=== PATIENT | female | born 1970 | race Hispanic/Latino ===

== ENCOUNTER → 2019-03-07 | Outpatient (CLI) | payer MEDICARE ==
[~2019-03-07] MED LIST: CITA-107 PO; INSU100I3 SQ; LISI-613 PO
== END | disposition home or self-care (01) ==
LOC: OIH 10:14
PROVIDERS: ATTEND Internal Medicine
DX: M17.0 Bilateral primary osteoarthritis of knee (principal)
CPT/HCPCS: 73560

== ENCOUNTER 2019-03-08 01:11 | Emergency (ER) | payer MEDICARE ==
[2019-03-08] MEDS ORDERED: IBUPROFEN 200 MG TAB ONE (01:51)
[2019-03-08] MEDS ORDERED: IBUPROFEN 400 MG TABLET ONE (01:51)
[2019-03-08 02:06] LABS: BASOPHILS % (AUTO) 1.2 % (0.0-5.0); EOSINOPHILS % (AUTO) 2.4 % (0.0-8.0); HEMATOCRIT 30.7 % (36-48); LYMPHOCYTES % (AUTO) 24.3 % (21.0-51.0); MEAN CORPUSCULAR HEMOGLOBIN 30.4 pg (27.0-33.0); MEAN CORPUSCULAR HGB CONC 33.8 g/dL (32.0-36.0); MEAN CORPUSCULAR VOLUME 90.1 fL (79-99); MONOCYTES % (AUTO) 5.8 % (3.0-13.0); NEUTROPHILS % (AUTO) 66.3 % (40.0-77.0); PLATELET COUNT (AUTO) 258 K/uL (130-400); RED BLOOD CELL COUNT(AUTO) 3.41 MIL/uL (4.00-5.50); RED CELL DISTRIBUTION WIDTH 17.4 % (11.0-15.5); WHITE BLOOD COUNT (AUTO) 10.6 K/uL (4.8-10.8)
[2019-03-08 02:18] LABS: CREATININE 7.5 mg/dL (0.5-1.5); POTASSIUM 4.9 mmol/L (3.5-5.1)
[2019-03-08 02:21] LABS: BILIRUBIN,TOTAL 0.4 mg/dL (0.2-1.0)
== END 2019-03-08 03:58 | disposition home or self-care (01) ==
LOC: EDH 01:11
DX: I12.0 Hypertensive chronic kidney disease with stage 5 chronic kidney disease or end stage renal disease (principal); E11.22 Type 2 diabetes mellitus with diabetic chronic kidney disease; N18.6 End stage renal disease; N92.6 Irregular menstruation, unspecified; Z99.2 Dependence on renal dialysis; Z88.0 Allergy status to penicillin; Z79.4 Long term (current) use of insulin
CPT/HCPCS: 36415; 74021; 76830; 80053; 84702; 85025

== ENCOUNTER → 2019-04-02 | Outpatient (CLI) | payer MEDICARE | END | disposition home or self-care (01) | LOC: OIH 11:10 | PROVIDERS: ATTEND Internal Medicine | DX: Z01.818 Encounter for other preprocedural examination (principal) | CPT/HCPCS: 71046 ==

== ENCOUNTER 2019-04-06 21:34 | Observation (INO) | payer MEDICARE ==
[~2019-04-06] VITALS: Ht 152.4 cm; Wt 82.1 kg
[2019-04-06] MEDS ORDERED: NITROGLYCERIN 1GM/1 INCH PACKET TD ONE (21:59)
[2019-04-06 22:22] LABS: BASOPHILS % (AUTO) 1.3 % (0.0-5.0); EOSINOPHILS % (AUTO) 2.4 % (0.0-8.0); HEMATOCRIT 27.3 % (36-48); LYMPHOCYTES % (AUTO) 26.9 % (21.0-51.0); MEAN CORPUSCULAR HEMOGLOBIN 29.8 pg (27.0-33.0); MEAN CORPUSCULAR HGB CONC 32.6 g/dL (32.0-36.0); MEAN CORPUSCULAR VOLUME 91.5 fL (79-99); MONOCYTES % (AUTO) 8.2 % (3.0-13.0); NEUTROPHILS % (AUTO) 61.2 % (40.0-77.0); PLATELET COUNT (AUTO) 508 K/uL (130-400); RED BLOOD CELL COUNT(AUTO) 2.99 MIL/uL (4.00-5.50); RED CELL DISTRIBUTION WIDTH 17.3 % (11.0-15.5)
[2019-04-06 22:31] LABS: CREATININE 6.1 mg/dL (0.5-1.5); POTASSIUM 4.9 mmol/L (3.5-5.1)
[2019-04-06 22:35] LABS: INR 0.93 (0.85-1.15); PARTIAL THROMBOPLASTIN TIME 28.5 SEC (26.3-35.5); PROTHROMBIN TIME 9.8 SEC (9.6-11.6)
[2019-04-06 22:40] LABS: ALBUMIN 3.1 g/dL (3.5-5.0); BILIRUBIN,TOTAL 0.3 mg/dL (0.2-1.0); TOTAL PROTEIN, SERUM 7.7 g/dL (6.0-8.3)
[2019-04-06] MEDS ORDERED: METOPROLOL TARTRATE 1 MG/ML 5ML VIAL IV ONE (22:52)
[2019-04-06] MEDS ORDERED: ASPIRIN 325MG EC TAB 325 MG TABLET.DR PO ONE (22:53)
[2019-04-07] VITALS (7 sets, daily range): BP systolic 133–186; BP diastolic 69–86
--- NOTE | 2019-04-07 03:30 | NUR ---
ADMISSION. PT TRANSFERRED FORM ER INTO ROOM 404 VIA STRETCHER. PT AWAKE, ALERT AND RESPONSIVE, NO C/O CHEST PAIN OR DISCOMFORT AT THIS TIME. PT ORIENTED TO ROOM, CALL ROMAN WITHIN REACH, BED IN LOWEST POSITION.
[2019-04-07] MEDS ORDERED: AMLO5TAB9 PO (03:51)
[2019-04-07] MEDS ORDERED: LOSA100T58 PO (03:51)
[2019-04-07] MEDS ORDERED: METO-409 PO (03:51)
[2019-04-07] MEDS ORDERED: ESOM20CA60 PO (03:51)
[2019-04-07] MEDS ORDERED: ZOLP5TAB2 PO (03:52)
[2019-04-07] MEDS ORDERED: INSU10VI3 SQ ×2 (04:17)
[2019-04-07 05:07] LABS: CREATINE KINASE, TOTAL 30 U/L (21-232); MYOGLOBIN 107 ng/mL (10-92); TROPONIN I < 0.04 ng/mL (0.00-0.06)
[2019-04-07] MEDS: INSULIN HUMULIN R 100 UNIT/ML 3ML SQ SCH ×4 (05:40→20:46)
[2019-04-07] MEDS: METOPROLOL TARTRATE 50 MG TAB PO SCH ×2 (09:36→20:45)
[2019-04-07] MEDS: PANTOPRAZOLE SODIUM 40 MG TABLET.DR PO SCH (09:37)
[2019-04-07] MEDS: INSULIN HUMULIN 70/30 100 UNIT/ML 3ML SQ SCH ×2 (09:37→17:00)
[2019-04-07] MEDS: CITALOPRAM 20 MG TABLET PO SCH (09:37)
[2019-04-07 10:47] LABS: CREATINE KINASE, TOTAL 39 U/L (21-232); MYOGLOBIN 124 ng/mL (10-92); TROPONIN I < 0.04 ng/mL (0.00-0.06)
--- NOTE | 2019-04-07 13:00 | NUR ---
MD ALEX HIDALGO VISITED WITH PATIENT. POC DISCUSSED. NEW ORDERS RECEIVED AND CARRIED OUT. PATIENT AWARE. NO QUESTIONS OR CONCERNS VOICED AT THIS TIME. PATIENT AWARE OF PENDING DIALYSIS AFTER [place]. WILL CONTINUE TO BE OBSERVED. CALL LIGHT WITHIN REACH. Addendum: 04/07/19 at 1802 by BAUDILIO LY RN RN Amended: Links added.
[2019-04-07] MEDS ORDERED: SODIUM POLYSTYRENE SULFONATE 15 GM/60 ML ML PO SCH (13:15)
[2019-04-07 16:34] LABS: CREATINE KINASE, TOTAL 27 U/L (21-232); MYOGLOBIN 114 ng/mL (10-92); TROPONIN I < 0.04 ng/mL (0.00-0.06)
--- NOTE | 2019-04-07 18:33 | NUR ---
cm note met with patient and states resides athome with spouse and extended family. pt has a walker and a cane, but rarely uses. pt attends [facility], and family assists with transport.no provider no services at home. dcplan is back to same. provided pt with requested info on provider assist through [facility] agency on aging and possible assist with transport to dialysis. no other dc needs. Addendum: 04/07/19 at 1835 by NIRALI VERDE CM Amended: Links added.
[2019-04-07] MEDS: LOSARTAN 100 MG TABLET PO SCH (20:45)
[2019-04-07] MEDS: ZOLPIDEM TARTRATE 5 MG TAB PO SCH (20:45)
[2019-04-07] MEDS: AMLODIPINE BESYLATE 5 MG TAB PO SCH (20:45)
[2019-04-08 04:00] VITALS: BP 159/79
[2019-04-08 05:16] LABS: HEMATOCRIT 23.9 % (36-48); MEAN CORPUSCULAR HEMOGLOBIN 29.3 pg (27.0-33.0); MEAN CORPUSCULAR HGB CONC 31.9 g/dL (32.0-36.0); MEAN CORPUSCULAR VOLUME 91.8 fL (79-99); PLATELET COUNT (AUTO) 387 K/uL (130-400); RED CELL DISTRIBUTION WIDTH 18.1 % (11.0-15.5); WHITE BLOOD COUNT (AUTO) 10.1 K/uL (4.8-10.8)
[2019-04-08] MEDS: INSULIN HUMULIN R 100 UNIT/ML 3ML SQ SCH ×4 (05:22→20:16)
[2019-04-08 05:29] LABS: PHOSPHORUS 3.3 mg/dL (2.5-4.9)
[2019-04-08 05:35] LABS: % IRON SATURATION 16.4 % (22-44); CREATININE 8.8 mg/dL (0.5-1.5)
--- NOTE | 2019-04-08 06:30 | NUR ---
ROUNDLUIS TELLO ROUNDLUIS IN PT ROOM AT THIS TIME. PT UPDATED ON POC, QUESTIONS AND CONCERNS WERE ADDRESSED BY . CRITICAL LAB VALUES ADDRESSED WITH . NO NEW ORDERS RECEIVED AT THIS TIME. Addendum: 04/08/19 at 0726 by TOBIAS KEEN RN Amended: Links added.
[2019-04-08] MEDS: INSULIN HUMULIN 70/30 100 UNIT/ML 3ML SQ SCH ×2 (08:00→17:00)
[2019-04-08] MEDS: CITALOPRAM 20 MG TABLET PO SCH (08:07)
[2019-04-08 08:16] VITALS: BP 179/83
[2019-04-08] MEDS: PANTOPRAZOLE SODIUM 40 MG TABLET.DR PO SCH (08:17)
[2019-04-08] MEDS: METOPROLOL TARTRATE 50 MG TAB PO SCH ×2 (08:18→20:03)
[2019-04-08] MEDS ORDERED: REGADENOSON 0.4 MG/5 ML PF SYG IVP SCH (11:00)
[2019-04-08 13:23] VITALS: BP 164/75
[2019-04-08] MEDS ORDERED: ONDANSETRON HCL 4 MG/2 ML VIAL IVP PRN (16:15)
[2019-04-08 16:57] VITALS: BP 180/92
--- NOTE | 2019-04-08 17:52 | NUR ---
Nutrition Intervention: Nutrition consult due to poor appetite, dialysis patient. Pt. admitted with Dx of Chest Pain, HTN, ESRD. Pt. reports has been on HD tx for about 4 years. Pt. on Renal Dialysis diet with poor p.o. intake today poss. due to stress test performed earlier, as per pt. Pt. report ate well yesterday. Labs reviewed(Alb 3.1, K 6.0, BUN 59, Creat 8.8, GFR 5, BG 158). LBM: 04/08/19. SR-22, elastic. BMI: 36.8, Obesity Grade 2. Pt. educated on Renal Dialysis diet and provided with education material. Pt. verbalized understanding. Recommendations: 1) Rec. 60gm CCD Renal Dialysis diet. 2) Rec. 30ml ProMod QD with B'fast meal. 3) Renal Dialysis diet education given to patient. 4) Continue to monitor pt's nutritional status. 5) Consult RD as nutrition concerns arise. Addendum: 04/08/19 at [address] Amended: Links added.
[2019-04-08 19:00] VITALS: BP 141/68
[2019-04-08] MEDS: LOSARTAN 100 MG TABLET PO SCH (20:03)
[2019-04-08] MEDS: ZOLPIDEM TARTRATE 5 MG TAB PO SCH (20:03)
[2019-04-08] MEDS: AMLODIPINE BESYLATE 5 MG TAB PO SCH (20:03)
[2019-04-09] VITALS: BP 121/55
[2019-04-09 03:59] VITALS: BP 154/71
[2019-04-09] MEDS: INSULIN HUMULIN R 100 UNIT/ML 3ML SQ SCH (05:30)
[2019-04-09 07:47] VITALS: BP 185/83
[2019-04-09] MEDS: PANTOPRAZOLE SODIUM 40 MG TABLET.DR PO SCH (08:57)
[2019-04-09] MEDS: CITALOPRAM 20 MG TABLET PO SCH (08:57)
[2019-04-09] MEDS: METOPROLOL TARTRATE 50 MG TAB PO SCH (08:57)
[2019-04-09] MEDS: INSULIN HUMULIN 70/30 100 UNIT/ML 3ML SQ SCH (09:00)
--- NOTE | 2019-04-09 11:39 | NUR ---
DC INSTRUCTIONS GIVEN TO PATIENT USING TEACH BACK, VERBALIZES UNDERSTANDING, IV CATHETER DISCONTINUED INTACT, NO BLEEDING NOTED, PATIENT DISCHARGED HOME TO THE CARE OF FAMILY, TRANSPORTED VIA WC.
[2019-04-10 07:21] LABS: HEPATITIS A ANTIBODY IGM Negative (Negative); HEPATITIS B CORE IGM Negative (Negative); HEPATITIS Bs ANTIGEN SCREEN P Negative (Negative)
== END 2019-04-09 11:50 | disposition home or self-care (01) ==
LOC: EDH 21:34 → EDHIP 23:14 → 4AH 04-07 02:33
PROVIDERS: ADMIT Internal Medicine; ATTEND Internal Medicine
DX: I24.9 Acute ischemic heart disease, unspecified (principal); D64.9 Anemia, unspecified; E11.22 Type 2 diabetes mellitus with diabetic chronic kidney disease; E78.5 Hyperlipidemia, unspecified; I12.0 Hypertensive chronic kidney disease with stage 5 chronic kidney disease or end stage renal disease; E87.5 Hyperkalemia; I25.119 Atherosclerotic heart disease of native coronary artery with unspecified angina pectoris; N18.6 End stage renal disease; Z82.49 Family history of ischemic heart disease and other diseases of the circulatory system; Z83.3 Family history of diabetes mellitus; Z99.2 Dependence on renal dialysis; Z79.899 Other long term (current) drug therapy
CPT/HCPCS: 36415 ×3; 71045; 78452; 80048; 80053; 80074; 82550 ×4; 82948 ×9; 83540; 83550; 83874 ×3; 84100; 84484 ×4; 84702; 85025; 85027; 85610; 85730; 93005; 93017; 96372 ×2; 99291; A9500 ×2; G0257; G0378 ×58; J1815 ×2; J2785; J3490; 90935; 96374

== ENCOUNTER → 2019-07-18 | Outpatient (CLI) | payer MEDICARE ==
[~2019-07-18] MED LIST changes: +AMLO5TAB9 PO; +ESOM20CA60 PO; -INSU100I3 SQ; +INSU10VI3 SQ; -LISI-613 PO; +LOSA100T58 PO; +METO-409 PO; +ZOLP5TAB2 PO
== END | disposition home or self-care (01) ==
LOC: OIH 15:30
PROVIDERS: ATTEND Internal Medicine
DX: M47.26 Other spondylosis with radiculopathy, lumbar region (principal); M25.78 Osteophyte, vertebrae; M48.07 Spinal stenosis, lumbosacral region
CPT/HCPCS: 72100

== ENCOUNTER 2020-05-27 17:52 | Inpatient (IN) | payer MEDICARE ==
[~2020-05-27 17:52] MED LIST changes: +AMLO-257 PO; -AMLO5TAB9 PO
[2020-05-27 18:49] LABS: BASOPHILS % (AUTO) 0.4 % (0.0-5.0); EOSINOPHILS % (AUTO) 0.3 % (0.0-8.0); HEMATOCRIT 29.5 % (36-48); LYMPHOCYTES % (AUTO) 18.2 % (21.0-51.0); MEAN CORPUSCULAR HEMOGLOBIN 29.9 pg (27.0-33.0); MEAN CORPUSCULAR HGB CONC 31.9 g/dL (32.0-36.0); MEAN CORPUSCULAR VOLUME 93.9 fL (79-99); NEUTROPHILS % (AUTO) 71.8 % (40.0-77.0); PLATELET COUNT (AUTO) 281 K/uL (130-400); RED BLOOD CELL COUNT(AUTO) 3.14 MIL/uL (4.00-5.50); RED CELL DISTRIBUTION WIDTH 16.8 % (11.0-15.5); WHITE BLOOD COUNT (AUTO) 7.3 K/uL (4.8-10.8)
[2020-05-27 19:02] LABS: INR 0.9 (0.85-1.15); PARTIAL THROMBOPLASTIN TIME 31.2 SEC (26.3-35.5); PROTHROMBIN TIME 9.8 SEC (9.6-11.6)
[2020-05-27 19:13] LABS: ALBUMIN 2.9 g/dL (3.5-5.0); BILIRUBIN,TOTAL 0.3 mg/dL (0.2-1.0); CRP QUANTITATIVE 155.1 mg/L (0.00-9.0); POTASSIUM 4.6 mmol/L (3.5-5.1); TOTAL PROTEIN, SERUM 7.5 g/dL (6.0-8.3)
[2020-05-27 19:19] LABS: CREATININE 12.3 mg/dL (0.5-1.5)
[2020-05-27 20:56] LABS: FERRITIN 2731 ng/mL (15-150)
[2020-05-27] MEDS ORDERED: DOXYCYCLINE HYCLATE 100 MG TABLET PO ONE (22:09)
[2020-05-27] MEDS ORDERED: METRONIDAZOLE 500 MG TABLET ONE (22:09)
[2020-05-27] MEDS ORDERED: DOXYCYCLINE 100MG+NS 250ML IV SCH (22:45)
[2020-05-27] MEDS ORDERED: LACTULOSE 20 GM/30 ML UDCUP PO PRN (22:45)
[2020-05-27] MEDS ORDERED: ONDANSETRON HCL 4 MG/2 ML VIAL IV PRN (22:45)
[2020-05-27] MEDS ORDERED: ERGOCALCIFEROL (VITAMIN D2) 50,000 UNIT CAPSULE PO ONE (22:45)
[2020-05-27] MEDS ORDERED: ACETAMINOPHEN 325 MG TAB PO PRN ×2 (22:45)
[2020-05-27] MEDS ORDERED: ALBUTEROL INHALER 90MCG/INH IH PRN (23:00)
[2020-05-27] MEDS ORDERED: ACETAMINOPHEN EXTRA STRENGTH 500 MG TABLET ONE (23:18)
[2020-05-27] MEDS ORDERED: ONDANSETRON HCL 4 MG/2 ML VIAL ONE (23:18)
[2020-05-27] MEDS ORDERED: HEPARIN SODIUM 5000UNIT/ML 1ML VIAL SQ SCH (23:45)
[2020-05-28] MEDS ORDERED: METHYLPREDNISOLONE SOD SUCC 40MG/ML 1ML IVP SCH
[2020-05-28] MEDS ORDERED: HYDRALAZINE HCL 20 MG/ML VIAL IV PRN
[2020-05-28] MEDS ORDERED: HEPARIN SODIUM 5000UNIT/ML 1ML VIAL ONE (00:03)
[2020-05-28] MEDS ORDERED: METHYLPREDNISOLONE SOD SUCC 40MG/ML 1ML ONE (00:03)
[2020-05-28 06:59] LABS: CRP QUANTITATIVE 215.9 mg/L (0.00-9.0)
[2020-05-28] MEDS ORDERED: INSULIN HUMULIN R 100 UNIT/ML 3ML ONE ×2 (07:06→12:11)
[2020-05-28] MEDS ORDERED: INSULIN HUMULIN R 100 UNIT/ML 3ML SQ SCH (07:30)
[2020-05-28] MEDS ORDERED: DOXYCYCLINE HYCLATE 100 MG TABLET PO ONE (08:32)
[2020-05-28] MEDS ORDERED: ZINC SULFATE 220 CAPSULE ONE (08:33)
[2020-05-28] MEDS ORDERED: ASCORBIC ACID 500 MG TAB ONE (08:33)
[2020-05-28] MEDS ORDERED: ONDANSETRON HCL 4 MG/2 ML VIAL ONE (08:35)
[2020-05-28] MEDS ORDERED: FAMOTIDINE 20MG TAB 20 MG TAB PO SCH (09:00)
[2020-05-28] MEDS ORDERED: ZINC SULFATE 220 CAPSULE PO SCH (09:00)
[2020-05-28] MEDS ORDERED: ASCORBIC ACID 500 MG TAB PO SCH (09:00)
[2020-05-28] MEDS ORDERED: DOXYCYCLINE 100MG+NS 250ML 250 ML IV ONE (11:34)
[2020-05-28] MEDS ORDERED: LIDOCAINE HCL-MPF 1% 2ML VIAL IJ PRN (13:45)
[2020-05-28] MEDS ORDERED: ACETAMINOPHEN 325 MG TAB PO PRN (13:45)
[2020-05-28] MEDS ORDERED: 0.9% SODIUM CHLORIDE 1000 ML IV BAG IV PRN (13:45)
[2020-05-28] MEDS ORDERED: SODIUM CHLORIDE 0.9% 1000ML 1,000 ML IV PRN (13:45)
[2020-05-28] MEDS ORDERED: DEXA6TAB PO (13:45)
[2020-05-28] MEDS ORDERED: NITROGLYCERIN 0.4 MG SL TAB SL PRN (13:45)
[2020-05-28] MEDS ORDERED: APIX2.5T PO (13:50)
--- NOTE | 2020-05-28 16:16 | NUR ---
UNABLE TO SPEAK TO PATIENT- NO ANSWER. REVIEWED CM INFO FROM LAST ADMIT- LIVES WITH SPOUSE,INDEPENDENT OF ADLS, HAS RW AND CANE IF NEEDED HD AT [facility], CALLED CLINIC TO UPDATE, AA STATES 'SHE HAS BEEN EDUCATED AND KNOWS WHAT TO DO'. NO ACTION REQUIRED BY CASE MANAGEMENT Addendum: 05/28/20 at 1618 by RICHY VALENCIA RN Amended: Links added.
== END 2020-05-28 19:39 | disposition home or self-care (01) | DRG 177 ==
LOC: EDH 17:52 → EDHIP 22:44
PROVIDERS: ADMIT Hospitalist; ATTEND Hospitalist
PROC: 5A1D70Z Performance of Urinary Filtration, Intermittent, Less than 6 Hours Per Day (ICD-10-PCS; principal; 2020-05-28)
DX: U07.1 COVID-19 (principal); N18.6 End stage renal disease; J12.89 Other viral pneumonia; I12.0 Hypertensive chronic kidney disease with stage 5 chronic kidney disease or end stage renal disease; E11.22 Type 2 diabetes mellitus with diabetic chronic kidney disease; R79.89 Other specified abnormal findings of blood chemistry; Z99.2 Dependence on renal dialysis; Z83.3 Family history of diabetes mellitus; Z82.49 Family history of ischemic heart disease and other diseases of the circulatory system; Z82.0 Family history of epilepsy and other diseases of the nervous system; Z98.51 Tubal ligation status; Z88.0 Allergy status to penicillin; Z79.899 Other long term (current) drug therapy
CPT/HCPCS: 36415; 71045; 80053; 82550; 82728; 82948; 83605; 83615; 84145; 84484; 85025; 85378; 85610; 85730; 86140; 87040; 90935; 93005; G0378; J1644; J1815; J2405; J2920; J3490

== ENCOUNTER 2020-05-31 00:09 | Inpatient (IN) | payer MEDICARE ==
[~2020-05-31] VITALS: Ht 152.4 cm; Wt 111.1 kg
[~2020-05-31 00:09] MED LIST changes: -AMLO-257 PO; +AMLO5TAB9 PO; +APIX2.5T PO; +DEXA6TAB PO
[2020-05-31 01:09] LABS: BASOPHILS % (AUTO) 0.1 % (0.0-5.0); EOSINOPHILS % (AUTO) 1.8 % (0.0-8.0); HEMATOCRIT 28.1 % (36-48); LYMPHOCYTES % (AUTO) 4.9 % (21.0-51.0); MEAN CORPUSCULAR HGB CONC 32.7 g/dL (32.0-36.0); MEAN CORPUSCULAR VOLUME 91.5 fL (79-99); MONOCYTES % (AUTO) 1.8 % (3.0-13.0); NEUTROPHILS % (AUTO) 91.1 % (40.0-77.0); PLATELET COUNT (AUTO) 286 K/uL (130-400); RED BLOOD CELL COUNT(AUTO) 3.07 MIL/uL (4.00-5.50); WHITE BLOOD COUNT (AUTO) 10.4 K/uL (4.8-10.8)
[2020-05-31 01:12] LABS: ABG BASE EXCESS -1.5 mmol/L (-2.0-3.0); ABG OXYGEN SATURATION 96.4 % (95.0-99.0); ABG PCO2 38 mmHg (32-45)
[2020-05-31 01:28] LABS: ALBUMIN 2.7 g/dL (3.5-5.0); BILIRUBIN,TOTAL 0.3 mg/dL (0.2-1.0); INR 0.9 (0.85-1.15); PARTIAL THROMBOPLASTIN TIME 31.9 SEC (26.3-35.5); POTASSIUM 5.1 mmol/L (3.5-5.1); PROTHROMBIN TIME 9.8 SEC (9.6-11.6); TOTAL PROTEIN, SERUM 7.6 g/dL (6.0-8.3)
[2020-05-31 01:36] LABS: B-TYPE NATRIURETIC PEPTIDE 149 pg/mL (0-100)
[2020-05-31] MEDS: ALBUTEROL INHALER 90MCG/INH IH SCH ×6 (02:45→22:45)
[2020-05-31] MEDS ORDERED: HYDRALAZINE HCL 20 MG/ML VIAL IV PRN ×2 (02:45→17:45)
[2020-05-31] MEDS ORDERED: LACTULOSE 20 GM/30 ML UDCUP PO PRN (02:45)
[2020-05-31] MEDS ORDERED: HEPARIN SODIUM 5000UNIT/ML 1ML VIAL SQ SCH (02:45)
[2020-05-31] MEDS ORDERED: ACETAMINOPHEN 325 MG TAB PO PRN ×2 (02:45)
[2020-05-31] MEDS ORDERED: ERGOCALCIFEROL (VITAMIN D2) 50,000 UNIT CAPSULE PO SCH (02:45)
[2020-05-31] MEDS: DOXYCYCLINE 100MG+NS 250ML IV SCH ×2 (02:45→14:45)
[2020-05-31] MEDS ORDERED: ONDANSETRON HCL 4 MG/2 ML VIAL IV PRN (02:45)
[2020-05-31 02:57] LABS: FERRITIN 4427 ng/mL (15-150)
[2020-05-31] MEDS ORDERED: METHYLPREDNISOLONE SOD SUCC 40MG/ML 1ML IVP SCH (03:00)
[2020-05-31] MEDS ORDERED: ALBUTEROL INHALER 90MCG/INH IH ONE (03:06)
[2020-05-31] MEDS ORDERED: HEPARIN SODIUM 5000UNIT/ML 1ML VIAL ONE ×3 (03:07→19:59)
[2020-05-31] MEDS ORDERED: DOXYCYCLINE HYCLATE 100 MG TABLET PO ONE ×3 (03:20→19:59)
[2020-05-31] MEDS: INSULIN HUMULIN R 100 UNIT/ML 3ML SQ SCH ×4 (07:30→21:00)
[2020-05-31] MEDS ORDERED: ASCORBIC ACID 500 MG TAB ONE (08:04)
[2020-05-31] MEDS ORDERED: ERGOCALCIFEROL (VITAMIN D2) 50,000 UNIT CAPSULE ONE (08:04)
[2020-05-31] MEDS ORDERED: ZINC SULFATE 220 CAPSULE ONE (08:05)
[2020-05-31] MEDS ORDERED: FAMOTIDINE/PF 20 MG/2 ML VIAL IV ONE ×2 (08:06→19:59)
[2020-05-31] MEDS: ZINC SULFATE 220 CAPSULE PO SCH (09:00)
[2020-05-31] MEDS: ASCORBIC ACID 500 MG TAB PO SCH (09:00)
[2020-05-31] MEDS: FAMOTIDINE 20MG TAB 20 MG TAB PO SCH ×2 (09:00→21:00)
--- NOTE | 2020-05-31 12:45 | NUR ---
MARIEL PLAN PATIENT DISCHARGED 3 DAYS AGO. LIVES WITH SPOUSE. USES A ROLLATOR WALKER. PETER CHAPARRO. DID NOT GO TO DIALYSIS SAID HAD BEEN FEELING ILL AND CHOOSE NOT GO. MIGDALIA WILL CONTINUE TO FOLLOW. WILL FOLLOW UP WITH RENAL CLINIC TOMORROW. Addendum: 05/31/20 at 1248 by JINA THURSTON RN CM Amended: Links added.
[2020-05-31] MEDS ORDERED: METHYLPREDNISOLONE SOD SUCC 125MG/2ML VIAL IVP SCH (14:45)
[2020-05-31] MEDS ORDERED: HYDRALAZINE HCL 20 MG/ML VIAL ONE (16:22)
[2020-05-31] MEDS ORDERED: INSULIN HUMULIN R 100 UNIT/ML 3ML ONE ×2 (17:15→20:46)
[2020-05-31] MEDS ORDERED: METHYLPREDNISOLONE SOD SUCC 40MG/ML 1ML ONE (19:58)
[2020-05-31] MEDS ORDERED: MORPHINE SULFATE 2 MG/ML 1ML SYG IVP PRN (20:30)
[2020-05-31] MEDS: INSULIN GLARGINE 100 UNITS/ML 10 ML VIAL SQ SCH (21:03)
[2020-05-31] MEDS ORDERED: MORPHINE SULFATE 2 MG/ML 1ML SYG ONE (22:40)
[2020-06-01] MEDS ORDERED: LORAZEPAM 2 MG/ML 1 ML VIAL ONE (00:50)
[2020-06-01] MEDS ORDERED: METHYLPREDNISOLONE SOD SUCC 125MG/2ML VIAL ONE ×2 (00:51→20:00)
[2020-06-01] MEDS ORDERED: LORAZEPAM 2 MG/ML 1 ML VIAL IVP PRN (01:45)
[2020-06-01] MEDS: ALBUTEROL INHALER 90MCG/INH IH SCH ×6 (02:45→22:45)
[2020-06-01] MEDS: DOXYCYCLINE 100MG+NS 250ML IV SCH ×2 (02:45→14:45)
[2020-06-01] MEDS ORDERED: MORPHINE SULFATE 2 MG/ML 1ML SYG ONE ×2 (03:47→04:42)
[2020-06-01] MEDS ORDERED: NITROGLYCERIN 1GM/1 INCH PACKET TD ONE ×2 (04:41→12:42)
[2020-06-01] MEDS ORDERED: MORPHINE SULFATE 2 MG/ML 1ML SYG IVP SCH (05:45)
[2020-06-01] MEDS: HEPARIN SODIUM 5000UNIT/ML 1ML VIAL SQ SCH ×3 (06:00→22:00)
[2020-06-01] MEDS ORDERED: NITROGLYCERIN 1GM/1 INCH PACKET TD SCH (06:00)
[2020-06-01] MEDS: METHYLPREDNISOLONE SOD SUCC 125MG/2ML VIAL IVP SCH ×2 (06:00→18:00)
[2020-06-01] MEDS ORDERED: ONDANSETRON HCL 4 MG/2 ML VIAL ONE ×2 (06:55→21:41)
[2020-06-01] MEDS: INSULIN HUMULIN R 100 UNIT/ML 3ML SQ SCH ×4 (07:30→21:00)
[2020-06-01 07:34] LABS: POTASSIUM 5.7 mmol/L (3.5-5.1)
[2020-06-01 07:36] LABS: CREATININE 16.2 mg/dL (0.5-1.5)
[2020-06-01] MEDS ORDERED: ENOXAPARIN SODIUM 100 MG/1 ML SQ SCH (09:00)
[2020-06-01] MEDS: INSULIN GLARGINE 100 UNITS/ML 10 ML VIAL SQ SCH ×2 (09:00→21:00)
[2020-06-01] MEDS: ASCORBIC ACID 500 MG TAB PO SCH (09:00)
[2020-06-01] MEDS: ZINC SULFATE 220 CAPSULE PO SCH (09:00)
[2020-06-01] MEDS: FAMOTIDINE 20MG TAB 20 MG TAB PO SCH ×2 (09:00→21:00)
[2020-06-01] MEDS ORDERED: ENOXAPARIN SODIUM 100 MG/1 ML SQ ONE (09:09)
[2020-06-01] MEDS ORDERED: METHYLPREDNISOLONE SOD SUCC 40MG/ML 1ML ONE (09:09)
[2020-06-01] MEDS ORDERED: DOXYCYCLINE HYCLATE 100 MG TABLET PO ONE ×2 (09:09→20:00)
[2020-06-01] MEDS ORDERED: ZINC SULFATE 220 CAPSULE ONE (09:09)
[2020-06-01] MEDS ORDERED: ASCORBIC ACID 500 MG TAB ONE (09:09)
[2020-06-01] MEDS ORDERED: FAMOTIDINE/PF 20 MG/2 ML VIAL IV ONE ×2 (09:10→20:02)
[2020-06-01 13:54] LABS: BASOPHILS % (AUTO) 0.1 % (0.0-5.0); HEMATOCRIT 30.3 % (36-48); LYMPHOCYTES % (AUTO) 3.7 % (21.0-51.0); MEAN CORPUSCULAR HEMOGLOBIN 30.5 pg (27.0-33.0); MEAN CORPUSCULAR HGB CONC 31.7 g/dL (32.0-36.0); MEAN CORPUSCULAR VOLUME 96.2 fL (79-99); MONOCYTES % (AUTO) 1.6 % (3.0-13.0); NEUTROPHILS % (AUTO) 94.2 % (40.0-77.0); PLATELET COUNT (AUTO) 332 K/uL (130-400); RED BLOOD CELL COUNT(AUTO) 3.15 MIL/uL (4.00-5.50); RED CELL DISTRIBUTION WIDTH 16.1 % (11.0-15.5); WHITE BLOOD COUNT (AUTO) 14.2 K/uL (4.8-10.8)
--- NOTE | 2020-06-01 14:22 | NUR ---
phone call attempt for patient update, no answer.
[2020-06-01] MEDS ORDERED: FOLI1TAB85 PO (15:21)
[2020-06-01] MEDS ORDERED: PHOSLOC PO (15:21)
[2020-06-01] MEDS ORDERED: GABA300S PO (15:21)
[2020-06-01] MEDS ORDERED: ESTR2TAB PO (15:21)
[2020-06-01] MEDS ORDERED: GABAPENTIN 300 MG PO PRN (15:30)
[2020-06-01] MEDS: CALCIUM ACETATE 667 MG CAPSULE PO SCH (17:00)
[2020-06-01] MEDS: HOME MEDICATION 1 EACH SQ SCH (17:00)
[2020-06-01] MEDS ORDERED: INSULIN HUMULIN R 100 UNIT/ML 3ML ONE ×2 (17:02→20:29)
[2020-06-01] MEDS ORDERED: METOPROLOL TARTRATE 50 MG TAB ONE (20:00)
[2020-06-01] MEDS ORDERED: CALCIUM ACETATE 667 MG CAPSULE PO ONE (20:00)
[2020-06-01] MEDS ORDERED: AMLODIPINE BESYLATE 5 MG TAB ONE (20:00)
[2020-06-01] MEDS ORDERED: ZOLPIDEM TARTRATE 5 MG TAB ONE (20:01)
[2020-06-01] MEDS ORDERED: LOSARTAN 50 MG TABLET ONE (20:01)
[2020-06-01] MEDS: LOSARTAN 100 MG TABLET PO SCH (21:00)
[2020-06-01] MEDS: AMLODIPINE BESYLATE 5 MG TAB PO SCH (21:00)
[2020-06-01] MEDS: Metoprolol Succinate 100 MG PO SCH (21:00)
[2020-06-01] MEDS: ZOLPIDEM TARTRATE 5 MG TAB PO SCH (21:00)
[2020-06-02] MEDS ORDERED: METHYLPREDNISOLONE SOD SUCC 125MG/2ML VIAL ONE ×2 (01:33→07:51)
[2020-06-02] MEDS: DOXYCYCLINE 100MG+NS 250ML IV SCH ×2 (02:45→14:45)
[2020-06-02] MEDS: ALBUTEROL INHALER 90MCG/INH IH SCH ×6 (02:45→22:45)
[2020-06-02] MEDS: HEPARIN SODIUM 5000UNIT/ML 1ML VIAL SQ SCH ×3 (06:00→22:00)
[2020-06-02] MEDS: METHYLPREDNISOLONE SOD SUCC 125MG/2ML VIAL IVP SCH ×2 (06:00→18:00)
[2020-06-02] MEDS: INSULIN HUMULIN R 100 UNIT/ML 3ML SQ SCH ×4 (07:30→21:00)
[2020-06-02] MEDS ORDERED: ASCORBIC ACID 500 MG TAB ONE (07:50)
[2020-06-02] MEDS ORDERED: ZINC SULFATE 220 CAPSULE ONE (07:50)
[2020-06-02] MEDS ORDERED: DOXYCYCLINE HYCLATE 100 MG TABLET PO ONE (07:50)
[2020-06-02] MEDS ORDERED: HEPARIN SODIUM 5000UNIT/ML 1ML VIAL ONE ×2 (07:50→21:00)
[2020-06-02] MEDS ORDERED: FAMOTIDINE/PF 20 MG/2 ML VIAL IV ONE ×2 (07:51→20:43)
[2020-06-02] MEDS ORDERED: CALCIUM ACETATE 667 MG CAPSULE PO ONE (07:51)
[2020-06-02] MEDS: CALCIUM ACETATE 667 MG CAPSULE PO SCH ×3 (08:00→17:00)
[2020-06-02] MEDS: INSULIN ASPART SQ SCH (08:00)
[2020-06-02] MEDS: INSULN ASP PRT SQ SCH (08:00)
[2020-06-02 08:58] LABS: CRP QUANTITATIVE 330.7 mg/L (0.00-9.0)
[2020-06-02] MEDS: INSULIN GLARGINE 100 UNITS/ML 10 ML VIAL SQ SCH ×2 (09:00→21:00)
[2020-06-02] MEDS: FAMOTIDINE 20MG TAB 20 MG TAB PO SCH ×2 (09:00→21:00)
[2020-06-02] MEDS: ASCORBIC ACID 500 MG TAB PO SCH (09:00)
[2020-06-02] MEDS: ESTRADIOL 2 MG PO SCH (09:00)
[2020-06-02] MEDS: ZINC SULFATE 220 CAPSULE PO SCH (09:00)
[2020-06-02] MEDS: CITALOPRAM 20 MG TABLET PO SCH (09:00)
[2020-06-02] MEDS: [UNRECOGNIZED DRUG - OTHER] PO SCH (09:00)
[2020-06-02 11:27] LABS: HEMATOCRIT 30.9 % (36-48); LYMPHOCYTES % (AUTO) 4.6 % (21.0-51.0); MEAN CORPUSCULAR HEMOGLOBIN 30.5 pg (27.0-33.0); MEAN CORPUSCULAR VOLUME 95.1 fL (79-99); MONOCYTES % (AUTO) 1.8 % (3.0-13.0); NEUTROPHILS % (AUTO) 93.2 % (40.0-77.0); PLATELET COUNT (AUTO) 345 K/uL (130-400); RED BLOOD CELL COUNT(AUTO) 3.25 MIL/uL (4.00-5.50); WHITE BLOOD COUNT (AUTO) 14.1 K/uL (4.8-10.8)
[2020-06-02 11:37] LABS: ALBUMIN 2.5 g/dL (3.5-5.0); BILIRUBIN,TOTAL 0.3 mg/dL (0.2-1.0); TOTAL PROTEIN, SERUM 8.1 g/dL (6.0-8.3)
[2020-06-02 11:44] LABS: CREATININE 12.1 mg/dL (0.5-1.5); POTASSIUM 6.2 mmol/L (3.5-5.1)
[2020-06-02] MEDS ORDERED: INSULIN HUMULIN R 100 UNIT/ML 3ML ONE ×3 (12:01→20:51)
[2020-06-02] MEDS ORDERED: DOXYCYCLINE 100MG+NS 250ML 250 ML IV ONE (14:15)
--- NOTE | 2020-06-02 16:24 | NUR ---
phone call No answer
[2020-06-02] MEDS: HOME MEDICATION 1 EACH SQ SCH (17:00)
[2020-06-02] MEDS ORDERED: ONDANSETRON HCL 4 MG/2 ML VIAL ONE (17:27)
[2020-06-02] MEDS ORDERED: AMLODIPINE BESYLATE 5 MG TAB ONE (20:41)
[2020-06-02] MEDS ORDERED: ZOLPIDEM TARTRATE 5 MG TAB ONE (20:42)
[2020-06-02] MEDS ORDERED: LOSARTAN 50 MG TABLET ONE (20:42)
[2020-06-02] MEDS: Metoprolol Succinate 100 MG PO SCH (21:00)
[2020-06-02] MEDS: LOSARTAN 100 MG TABLET PO SCH (21:00)
[2020-06-02] MEDS: AMLODIPINE BESYLATE 5 MG TAB PO SCH (21:00)
[2020-06-02] MEDS: ZOLPIDEM TARTRATE 5 MG TAB PO SCH (21:00)
[2020-06-02] MEDS ORDERED: METOPROLOL TARTRATE 50 MG TAB ONE (21:01)
[2020-06-03 00:56] VITALS: BP 193/91
[2020-06-03] MEDS: ALBUTEROL INHALER 90MCG/INH IH SCH ×6 (02:22→21:24)
[2020-06-03] MEDS ORDERED: DOXYCYCLINE 100MG+NS 250ML 250 ML IV ONE (02:59)
[2020-06-03] MEDS: DOXYCYCLINE 100MG+NS 250ML IV SCH (03:03)
[2020-06-03] MEDS: INSULIN HUMULIN R 100 UNIT/ML 3ML SQ SCH ×4 (05:31→21:00)
[2020-06-03] MEDS: METHYLPREDNISOLONE SOD SUCC 125MG/2ML VIAL IVP SCH ×2 (05:42→17:45)
[2020-06-03 05:45] VITALS: BP 152/83
[2020-06-03] MEDS: HEPARIN SODIUM 5000UNIT/ML 1ML VIAL SQ SCH ×3 (05:52→21:24)
[2020-06-03 08:00] VITALS: BP 160/80
[2020-06-03] MEDS: INSULIN ASPART SQ SCH (08:00)
[2020-06-03] MEDS: INSULN ASP PRT SQ SCH (08:00)
[2020-06-03 08:09] LABS: CRP QUANTITATIVE 221.5 mg/L (0.00-9.0)
[2020-06-03] MEDS: ESTRADIOL 2 MG PO SCH (09:00)
[2020-06-03] MEDS: [UNRECOGNIZED DRUG - OTHER] PO SCH (09:00)
[2020-06-03] MEDS: CALCIUM ACETATE 667 MG CAPSULE PO SCH ×3 (09:31→17:00)
[2020-06-03] MEDS: CITALOPRAM 20 MG TABLET PO SCH (09:32)
[2020-06-03] MEDS: FAMOTIDINE 20MG TAB 20 MG TAB PO SCH ×2 (09:32→21:21)
[2020-06-03] MEDS: ASCORBIC ACID 500 MG TAB PO SCH (09:32)
[2020-06-03] MEDS: ZINC SULFATE 220 CAPSULE PO SCH (09:32)
[2020-06-03 09:34] LABS: POTASSIUM 5.9 mmol/L (3.5-5.1)
[2020-06-03] MEDS: INSULIN GLARGINE 100 UNITS/ML 10 ML VIAL SQ SCH ×2 (09:35→21:24)
[2020-06-03 09:41] LABS: CREATININE 13.3 mg/dL (0.5-1.5)
[2020-06-03 12:00] VITALS: BP 148/76
[2020-06-03] MEDS: HOME MEDICATION 1 EACH SQ SCH (12:14)
--- NOTE | 2020-06-03 13:16 | NUR ---
CM NOTE/[facility] CALL PLACED TO [facility] [place] TO MAKE OFFICE AWARE OF POSSIBLE COVID PATIENT. PER ADITHYA, PATIENT ALREADY MOVED SHIFTS TO 4TH SHIFT FOR COVID POSITIVE/POSSIBLE COVID PATIENTS. WILL FAX COVID RESULT TO CANDICE AT [facility] ONCE OBTAINED.
--- NOTE | 2020-06-03 14:00 | NUR ---
PHYSICIAN ROUNDS DR WILDER ROUNDED ON PATIENT AND ORDERS RECEIVED FOR LABS IN AM, CBC, CMP AND PHOS TO BE DRAWN PEDI TUBES, HE TALKED TO PATIENT ABOUT RECEIVING PLASMAS, BUT PATIENT REFUSED.
--- NOTE | 2020-06-03 14:13 | NUR ---
PHYSICIAN ROUNDS DR ANGELA MILLER ROUNDED ON PATIENT ORDERS RECEIVED FOR HOMOLOG SQ BEFORE MEALS.
[2020-06-03] MEDS ORDERED: DiphenhydrAMINE HCL 50 MG/ML VIAL ONE (15:53)
[2020-06-03 16:00] VITALS: BP 106/66
[2020-06-03] MEDS: INSULIN LISPRO 100 UNIT/ML 3ML SQ SCH (17:47)
[2020-06-03] MEDS: DOXYCYCLINE HYCLATE 100 MG TABLET PO SCH ×2 (18:39→21:20)
[2020-06-03] MEDS: ZOLPIDEM TARTRATE 5 MG TAB PO SCH (21:00)
[2020-06-03] MEDS: AMLODIPINE BESYLATE 5 MG TAB PO SCH (21:20)
[2020-06-03] MEDS: LOSARTAN 100 MG TABLET PO SCH (21:20)
[2020-06-03] MEDS: Metoprolol Succinate 100 MG PO SCH (21:21)
[2020-06-03 21:34] VITALS: BP 152/79
[2020-06-04 01:48] VITALS: BP 112/54
[2020-06-04] MEDS: ALBUTEROL INHALER 90MCG/INH IH SCH ×6 (02:00→20:46)
[2020-06-04 04:40] LABS: BASOPHILS % (AUTO) 0.1 % (0.0-5.0); LYMPHOCYTES % (AUTO) 2.8 % (21.0-51.0); MEAN CORPUSCULAR HEMOGLOBIN 30.4 pg (27.0-33.0); MEAN CORPUSCULAR HGB CONC 32.3 g/dL (32.0-36.0); MONOCYTES % (AUTO) 3.8 % (3.0-13.0); NEUTROPHILS % (AUTO) 92.2 % (40.0-77.0); PLATELET COUNT (AUTO) 386 K/uL (130-400); RED BLOOD CELL COUNT(AUTO) 3.19 MIL/uL (4.00-5.50); RED CELL DISTRIBUTION WIDTH 15.9 % (11.0-15.5); WHITE BLOOD COUNT (AUTO) 19.2 K/uL (4.8-10.8)
[2020-06-04] MEDS: INSULIN HUMULIN R 100 UNIT/ML 3ML SQ SCH ×4 (05:56→20:45)
[2020-06-04] MEDS: HEPARIN SODIUM 5000UNIT/ML 1ML VIAL SQ SCH ×3 (05:56→20:30)
[2020-06-04] MEDS: METHYLPREDNISOLONE SOD SUCC 125MG/2ML VIAL IVP SCH ×2 (05:57→17:50)
[2020-06-04 06:22] VITALS: BP 143/84
[2020-06-04 07:09] LABS: ALBUMIN 2.4 g/dL (3.5-5.0); BILIRUBIN,TOTAL 0.5 mg/dL (0.2-1.0); PHOSPHORUS 9.8 mg/dL (2.5-4.9); POTASSIUM 5.5 mmol/L (3.5-5.1); TOTAL PROTEIN, SERUM 7.6 g/dL (6.0-8.3)
[2020-06-04 07:19] LABS: CREATININE 9.8 mg/dL (0.5-1.5)
[2020-06-04 07:36] LABS: CRP QUANTITATIVE 173.1 mg/L (0.00-9.0)
[2020-06-04 08:00] VITALS: BP 133/79
[2020-06-04] MEDS: INSULIN ASPART SQ SCH (08:00)
[2020-06-04] MEDS: INSULIN LISPRO 100 UNIT/ML 3ML SQ SCH ×3 (08:00→16:50)
[2020-06-04] MEDS: INSULN ASP PRT SQ SCH (08:00)
[2020-06-04] MEDS: CALCIUM ACETATE 667 MG CAPSULE PO SCH ×3 (08:00→16:48)
[2020-06-04] MEDS: ESTRADIOL 2 MG PO SCH (09:00)
[2020-06-04] MEDS: [UNRECOGNIZED DRUG - OTHER] PO SCH (09:00)
[2020-06-04] MEDS: ZINC SULFATE 220 CAPSULE PO SCH (09:33)
[2020-06-04] MEDS: CITALOPRAM 20 MG TABLET PO SCH (09:33)
[2020-06-04] MEDS: ASCORBIC ACID 500 MG TAB PO SCH (09:33)
[2020-06-04] MEDS: DOXYCYCLINE HYCLATE 100 MG TABLET PO SCH ×2 (09:33→20:31)
[2020-06-04] MEDS: FAMOTIDINE 20MG TAB 20 MG TAB PO SCH ×2 (09:33→20:31)
[2020-06-04] MEDS: INSULIN GLARGINE 100 UNITS/ML 10 ML VIAL SQ SCH ×2 (09:35→20:46)
[2020-06-04 11:00] VITALS: BP 149/85
[2020-06-04] MEDS: DiphenhydrAMINE HCL 50 MG/ML VIAL IV PRN (12:57)
--- NOTE | 2020-06-04 13:31 | NUR ---
PHYSICIAN ROUNDED DR MEÑO WILDER ROUNDED ON PATIENT ORDERS RECEIVED FOR CBC WITH MANUAL DIFF AND BMP IN AM
[2020-06-04 15:26] VITALS: BP 143/71
[2020-06-04] MEDS: HOME MEDICATION 1 EACH SQ SCH (16:48)
[2020-06-04] MEDS: ZOLPIDEM TARTRATE 5 MG TAB PO SCH (19:37)
[2020-06-04] MEDS: LOSARTAN 100 MG TABLET PO SCH (20:30)
[2020-06-04] MEDS: Metoprolol Succinate 100 MG PO SCH (20:31)
[2020-06-04] MEDS: AMLODIPINE BESYLATE 5 MG TAB PO SCH (20:31)
[2020-06-04 21:08] VITALS: BP 123/77
[2020-06-05 00:35] VITALS: BP 145/86
[2020-06-05] MEDS: ALBUTEROL INHALER 90MCG/INH IH SCH ×6 (02:47→22:21)
[2020-06-05 05:39] LABS: BASOPHILS % (AUTO) 0.1 % (0.0-5.0); HEMATOCRIT 32.9 % (36-48); LYMPHOCYTES % (AUTO) 4.4 % (21.0-51.0); MEAN CORPUSCULAR HEMOGLOBIN 29.7 pg (27.0-33.0); MEAN CORPUSCULAR HGB CONC 31.9 g/dL (32.0-36.0); MEAN CORPUSCULAR VOLUME 93.2 fL (79-99); MONOCYTES % (AUTO) 3.4 % (3.0-13.0); PLATELET COUNT (AUTO) 466 K/uL (130-400); RED BLOOD CELL COUNT(AUTO) 3.53 MIL/uL (4.00-5.50); RED CELL DISTRIBUTION WIDTH 15.6 % (11.0-15.5); WHITE BLOOD COUNT (AUTO) 21.6 K/uL (4.8-10.8)
[2020-06-05] MEDS: INSULIN HUMULIN R 100 UNIT/ML 3ML SQ SCH ×4 (05:48→22:26)
[2020-06-05] MEDS: METHYLPREDNISOLONE SOD SUCC 125MG/2ML VIAL IVP SCH ×2 (06:08→17:46)
[2020-06-05 06:13] VITALS: BP 147/87
[2020-06-05] MEDS: HEPARIN SODIUM 5000UNIT/ML 1ML VIAL SQ SCH ×2 (06:13→14:16)
[2020-06-05 06:51] LABS: CRP QUANTITATIVE 178.5 mg/L (0.00-9.0)
[2020-06-05 07:01] LABS: CREATININE 12.5 mg/dL (0.5-1.5); POTASSIUM 6.1 mmol/L (3.5-5.1)
[2020-06-05] MEDS: INSULIN ASPART SQ SCH (08:00)
[2020-06-05] MEDS: INSULIN LISPRO 100 UNIT/ML 3ML SQ SCH ×3 (08:00→17:00)
[2020-06-05] MEDS: INSULN ASP PRT SQ SCH (08:00)
[2020-06-05 08:30] VITALS: BP 133/75
[2020-06-05] MEDS ORDERED: SODIUM POLYSTYRENE SULFONATE 15 GM/60 ML ML PO SCH (08:30)
[2020-06-05] MEDS: [UNRECOGNIZED DRUG - OTHER] PO SCH (09:00)
[2020-06-05] MEDS: ESTRADIOL 2 MG PO SCH (09:00)
[2020-06-05] MEDS: FAMOTIDINE 20MG TAB 20 MG TAB PO SCH ×2 (09:23→21:00)
[2020-06-05] MEDS: ASCORBIC ACID 500 MG TAB PO SCH (09:23)
[2020-06-05] MEDS: DOXYCYCLINE HYCLATE 100 MG TABLET PO SCH ×2 (09:23→21:00)
[2020-06-05] MEDS: ZINC SULFATE 220 CAPSULE PO SCH (09:23)
[2020-06-05] MEDS: CITALOPRAM 20 MG TABLET PO SCH (09:23)
[2020-06-05] MEDS: CALCIUM ACETATE 667 MG CAPSULE PO SCH ×3 (09:23→17:15)
[2020-06-05] MEDS: INSULIN GLARGINE 100 UNITS/ML 10 ML VIAL SQ SCH ×2 (09:25→22:27)
[2020-06-05 11:00] VITALS: BP 138/77
[2020-06-05] MEDS ORDERED: HYDROMORPHONE HCL 0.5 MG/0.5 ML ML IVP PRN (11:15)
[2020-06-05 12:05] LABS: ALBUMIN 2.3 g/dL (3.5-5.0); BILIRUBIN,DIRECT 0.2 mg/dL (0.0-0.3); BILIRUBIN,TOTAL 0.6 mg/dL (0.2-1.0); TOTAL PROTEIN, SERUM 7.6 g/dL (6.0-8.3)
[2020-06-05] MEDS ORDERED: IOHEXOL-350 75 ML VIAL IV ONE (12:09)
[2020-06-05] MEDS: DiphenhydrAMINE HCL 50 MG/ML VIAL IV PRN (13:40)
--- NOTE | 2020-06-05 13:45 | NUR ---
dr cordon round and evaluated the pt, at the moment pt verbalized feeling anxious and with mild abdominal pain /. HD nurse was call and notify that Dr. Cordon want the pt to get dialysis stat.
[2020-06-05] MEDS ORDERED: CALCIUM GLUCONATE 1 GM/10 ML VIAL IV SCH (15:00)
[2020-06-05 15:05] LABS: ABG BASE EXCESS -8.1 mmol/L (-2.0-3.0); ABG HCO3 16.8 mmol/L (21.0-28.0); ABG OXYGEN SATURATION 84.9 % (95.0-99.0); ABG PCO2 33 mmHg (32-45)
--- NOTE | 2020-06-05 15:21 | NUR ---
DIALYSIS NURSE WAS NOT ABLE TO START HD TREATMENT DUE TO OCCLUSION ON THE LEFT ARM FISTULA. PT IS NOTED SOB WITH O2 SAT AT 81-83 % AND DETERIORATING, IMMEDIATELY DR PARRISH WAS NOTIFIED AND ORDER TO PLACE PT BACK ON BIPAP. RT NOTIFY AND PT WAS PLACE IN BIPAP. DR. 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
[2020-06-05] MEDS ORDERED: SODIUM BICARB 50MEQ 50ML VIAL ONE (15:56)
[2020-06-05] MEDS ORDERED: LIDOCAINE HCL 1% MDV 50ML VIAL ONE (15:57)
[2020-06-05 16:00] VITALS: BP 149/77
[2020-06-05] MEDS ORDERED: CALCIUM GLUCONATE 1 GM in SODIUM CHLORIDE 0.9% 100 ML IV ONE (16:15)
[2020-06-05] MEDS: HOME MEDICATION 1 EACH SQ SCH (17:00)
--- NOTE | 2020-06-05 17:19 | NUR ---
DR GUEVARA IN [place] HARVESTER OF NURSING STAFF USING STERILE TECHNIQUES INSERTED AURELIANO CATHETER IN RIGHT GROIN AREA. AREA IS OBSERVED CLEAN AND WITH NO SIGNS OF ACTIVE BLEEDING. PT TOLERATED PROCEDURE, NO COMPLAINTS.
--- NOTE | 2020-06-05 17:20 | NUR ---
Non tunnel dialysis catheter placed RFV at bedside. See dictated report for details please.
[2020-06-05] MEDS ORDERED: ALBUMIN (HUMAN) 25% 100 ML IV SCH (18:15)
--- NOTE | 2020-06-05 19:00 | NUR ---
HEMODIALYSIS WAS STARTED AT 1730, SINCE IT STARTED PT HAS BEEN DETERIORATING. AT THE MOMENT OF EVALUATION PT LOOKS LETHARGIC AND UNRESPONSIVE, AFTER MULTIPLE ATTENDS BP 98/67, HR 101, O2 SAT AT 88-91% CONNECTED TO BI-PAPA WITH I-PAP 16, E-PAP 10, RATE 14, O2 90%. DR. CURRY WAS NOTIFY, DR. PARRISH ALSO WAS NOTIFY. SECURITY BRING PAPER OF ADVANCE DIRECTIVES SIGN BY PT STATING SHE DONT WANT HER LIFE TO BE PROLONGED IF, TO A REASONABLE DEGREE OF MEDICAL CERTAINTY HER PROGNOSIS IR POOR. DR. PARRISH WAS NOTIFY ABOUT THE ADVANCE DIRECTIVES AND AFTER DISCUSSING WITH DR. CURRY THE DNR ORDER WAS PLACE. PT CONTINUE CONNECTED TO BI PAP AND WILL CONTINUE TREATMENT WITH NIGHT NURSE.
--- NOTE | 2020-06-05 19:39 | NUR ---
Final Life Decision I am the oncoming nurse for tonight & I am taking over Ms. Alvarenga care. I was informed in report that she was stable all day up until the point of when her dialysis session was started. The KATHRYN fistula was clotted & a STAT Allen Catheter was placed in the right groin. Her BP started to drop immediately & she became unresponsive per day shift nurse. The dialysis nurse was told by Dr. Blanchard to stop the procedure immediately due to the fact that her BP was not sustaining.The patient has a Power of Report Clerk that states she is a DNR & an order has been placed stating the same. Per Dr. Singleton there is nothing more that we can do for her besides keep her comfortable & do our best to keep her stable. She is not a candidate for ICU.
[2020-06-05 20:08] VITALS: BP 115/68
[2020-06-05] MEDS: ZOLPIDEM TARTRATE 5 MG TAB PO SCH (21:00)
[2020-06-05] MEDS: Metoprolol Succinate 100 MG PO SCH (21:00)
[2020-06-05] MEDS: AMLODIPINE BESYLATE 5 MG TAB PO SCH (21:00)
[2020-06-05] MEDS: LOSARTAN 100 MG TABLET PO SCH (21:00)
[2020-06-06 00:08] VITALS: BP 154/82
[2020-06-06] MEDS: ALBUTEROL INHALER 90MCG/INH IH SCH ×6 (02:47→23:06)
[2020-06-06 04:08] VITALS: BP 163/81
[2020-06-06] MEDS: INSULIN HUMULIN R 100 UNIT/ML 3ML SQ SCH ×4 (05:52→20:52)
[2020-06-06] MEDS: METHYLPREDNISOLONE SOD SUCC 125MG/2ML VIAL IVP SCH ×2 (06:08→17:16)
[2020-06-06] MEDS: INSULIN ASPART SQ SCH (07:41)
[2020-06-06] MEDS: INSULN ASP PRT SQ SCH (07:41)
[2020-06-06] MEDS: ESTRADIOL 2 MG PO SCH (07:42)
[2020-06-06] MEDS: [UNRECOGNIZED DRUG - OTHER] PO SCH (07:42)
[2020-06-06 07:51] LABS: BASOPHILS % (AUTO) 0.1 % (0.0-5.0); EOSINOPHILS % (AUTO) 0.3 % (0.0-8.0); HEMATOCRIT 26.4 % (36-48); LYMPHOCYTES % (AUTO) 4.6 % (21.0-51.0); MEAN CORPUSCULAR HEMOGLOBIN 30.7 pg (27.0-33.0); MEAN CORPUSCULAR HGB CONC 32.2 g/dL (32.0-36.0); MEAN CORPUSCULAR VOLUME 95.3 fL (79-99); MONOCYTES % (AUTO) 3.9 % (3.0-13.0); NEUTROPHILS % (AUTO) 89.6 % (40.0-77.0); NUCLEATED RED BLOOD CELLS 0.1 % (0.0-0.19); PLATELET COUNT (AUTO) 375 K/uL (130-400); RED BLOOD CELL COUNT(AUTO) 2.77 MIL/uL (4.00-5.50); RED CELL DISTRIBUTION WIDTH 15.6 % (11.0-15.5); WHITE BLOOD COUNT (AUTO) 17.3 K/uL (4.8-10.8)
[2020-06-06 08:00] VITALS: BP 155/78
[2020-06-06] MEDS: INSULIN LISPRO 100 UNIT/ML 3ML SQ SCH ×3 (08:00→16:45)
[2020-06-06 08:35] LABS: CRP QUANTITATIVE 132.9 mg/L (0.00-9.0); POTASSIUM 4.4 mmol/L (3.5-5.1)
[2020-06-06] MEDS: ASCORBIC ACID 500 MG TAB PO SCH (08:58)
[2020-06-06] MEDS: FAMOTIDINE 20MG TAB 20 MG TAB PO SCH ×3 (08:58→21:00)
[2020-06-06] MEDS: ZINC SULFATE 220 CAPSULE PO SCH (08:58)
[2020-06-06] MEDS: DOXYCYCLINE HYCLATE 100 MG TABLET PO SCH ×3 (08:58→21:00)
[2020-06-06] MEDS: CALCIUM ACETATE 667 MG CAPSULE PO SCH ×3 (09:00→17:16)
[2020-06-06] MEDS: INSULIN GLARGINE 100 UNITS/ML 10 ML VIAL SQ SCH ×2 (09:00→20:52)
[2020-06-06] MEDS: CITALOPRAM 20 MG TABLET PO SCH (09:01)
[2020-06-06] MEDS: DiphenhydrAMINE HCL 50 MG/ML VIAL IV PRN (10:50)
[2020-06-06 12:00] VITALS: BP 128/68
--- NOTE | 2020-06-06 13:19 | NUR ---
SPEAK WITH DR MILLER ABOUT PT CONDITION AND HE MENTION WILL ADJUST THE INSULIN SCALE AND DOSIS.
[2020-06-06 16:00] VITALS: BP 139/63
--- NOTE | 2020-06-06 16:26 | NUR ---
HEMODIALYSIS NURSE START TREATMENT AT 1230 PT TOLERATED WELL. AFTER 3HRS OF TREATMENT 0.6 LITERS REMOVED. BP 88/40, HR 93.
[2020-06-06] MEDS: HOME MEDICATION 1 EACH SQ SCH (16:34)
[2020-06-06] MEDS: ENOXAPARIN SODIUM 100 MG/1 ML SQ SCH ×2 (20:00→20:54)
[2020-06-06 20:08] VITALS: BP 130/70
[2020-06-06] MEDS: ZOLPIDEM TARTRATE 5 MG TAB PO SCH (20:52)
[2020-06-06] MEDS: AMLODIPINE BESYLATE 5 MG TAB PO SCH ×2 (20:53→21:00)
[2020-06-06] MEDS: LOSARTAN 100 MG TABLET PO SCH ×2 (20:53→21:00)
[2020-06-06] MEDS: Metoprolol Succinate 100 MG PO SCH ×2 (20:54→21:00)
[2020-06-07 00:08] VITALS: BP 166/75
[2020-06-07] MEDS: DiphenhydrAMINE HCL 50 MG/ML VIAL IV PRN (00:59)
[2020-06-07] MEDS: ALBUTEROL INHALER 90MCG/INH IH SCH ×6 (02:45→20:29)
[2020-06-07 04:08] VITALS: BP 154/78
[2020-06-07] MEDS: INSULIN HUMULIN R 100 UNIT/ML 3ML SQ SCH ×4 (06:09→20:29)
[2020-06-07] MEDS: METHYLPREDNISOLONE SOD SUCC 125MG/2ML VIAL IVP SCH ×2 (06:10→19:15)
[2020-06-07 07:58] LABS: BASOPHILS % (AUTO) 0.2 % (0.0-5.0); EOSINOPHILS % (AUTO) 0.2 % (0.0-8.0); HEMATOCRIT 26.9 % (36-48); LYMPHOCYTES % (AUTO) 4.8 % (21.0-51.0); MEAN CORPUSCULAR HEMOGLOBIN 30.2 pg (27.0-33.0); MEAN CORPUSCULAR VOLUME 94.4 fL (79-99); MONOCYTES % (AUTO) 3.7 % (3.0-13.0); NEUTROPHILS % (AUTO) 88.2 % (40.0-77.0); PLATELET COUNT (AUTO) 322 K/uL (130-400); RED BLOOD CELL COUNT(AUTO) 2.85 MIL/uL (4.00-5.50); RED CELL DISTRIBUTION WIDTH 14.9 % (11.0-15.5); WHITE BLOOD COUNT (AUTO) 12.9 K/uL (4.8-10.8)
[2020-06-07 08:00] VITALS: BP 150/86
[2020-06-07] MEDS: INSULIN LISPRO 100 UNIT/ML 3ML SQ SCH ×3 (08:00→17:00)
[2020-06-07] MEDS: INSULIN ASPART SQ SCH (08:00)
[2020-06-07] MEDS: INSULN ASP PRT SQ SCH (08:00)
[2020-06-07 08:22] LABS: CREATININE 7.6 mg/dL (0.5-1.5); POTASSIUM 4.3 mmol/L (3.5-5.1)
[2020-06-07] MEDS: [UNRECOGNIZED DRUG - OTHER] PO SCH (09:00)
[2020-06-07] MEDS: ZINC SULFATE 220 CAPSULE PO SCH (09:00)
[2020-06-07] MEDS: ENOXAPARIN SODIUM 100 MG/1 ML SQ SCH (09:00)
[2020-06-07] MEDS: ESTRADIOL 2 MG PO SCH (09:00)
[2020-06-07] MEDS: CITALOPRAM 20 MG TABLET PO SCH (09:00)
[2020-06-07 10:31] LABS: CRP QUANTITATIVE 254.1 mg/L (0.00-9.0)
[2020-06-07] MEDS: CALCIUM ACETATE 667 MG CAPSULE PO SCH ×3 (11:09→17:00)
[2020-06-07] MEDS: FAMOTIDINE 20MG TAB 20 MG TAB PO SCH (11:09)
[2020-06-07] MEDS: DOXYCYCLINE HYCLATE 100 MG TABLET PO SCH ×2 (11:09→20:29)
[2020-06-07] MEDS: ASCORBIC ACID 500 MG TAB PO SCH (11:09)
[2020-06-07] MEDS: INSULIN GLARGINE 100 UNITS/ML 10 ML VIAL SQ SCH ×2 (11:17→20:29)
[2020-06-07 12:00] VITALS: BP 139/78
[2020-06-07] MEDS ORDERED: COMPOUND IV REFRIGERATED 1 EACH IVSOLN MISC PRN (12:30)
[2020-06-07] MEDS: FOLIC ACID/VITAMIN B COMP W-C 1 CAP TAB PO SCH (12:47)
[2020-06-07] MEDS: PANTOPRAZOLE SODIUM 40 MG TABLET.DR PO SCH (12:47)
[2020-06-07] MEDS: ESTRADIOL 0.5 MG TABLET PO SCH (12:47)
[2020-06-07] MEDS: HOME MEDICATION 1 EACH SQ SCH (13:50)
[2020-06-07 16:00] VITALS: BP 100/61
[2020-06-07] MEDS ORDERED: INSULIN HUMULIN 70/30 100 UNIT/ML 3ML SQ SCH (17:00)
[2020-06-07] MEDS ORDERED: GABAPENTIN 300 MG CAPSULE PO PRN (17:00)
[2020-06-07 19:00] VITALS: BP 131/84
[2020-06-07] MEDS: ZOLPIDEM TARTRATE 5 MG TAB PO SCH (19:40)
[2020-06-07] MEDS: LOSARTAN 100 MG TABLET PO SCH (20:28)
[2020-06-07] MEDS: METOPROLOL SUCCINATE 50 MG TAB.SR.24H PO SCH (20:29)
[2020-06-07] MEDS: AMLODIPINE BESYLATE 5 MG TAB PO SCH (20:29)
[2020-06-08] VITALS: BP 149/85
[2020-06-08] MEDS: ALBUTEROL INHALER 90MCG/INH IH SCH ×5 (02:45→21:03)
[2020-06-08] MEDS: METHYLPREDNISOLONE SOD SUCC 125MG/2ML VIAL IVP SCH ×3 (03:52→15:44)
[2020-06-08 04:00] VITALS: BP 132/77
[2020-06-08] MEDS: INSULIN HUMULIN R 100 UNIT/ML 3ML SQ SCH ×4 (06:12→21:00)
[2020-06-08 06:14] LABS: BASOPHILS % (AUTO) 0.1 % (0.0-5.0); EOSINOPHILS % (AUTO) 1.2 % (0.0-8.0); HEMATOCRIT 26.7 % (36-48); MEAN CORPUSCULAR HEMOGLOBIN 30.6 pg (27.0-33.0); MEAN CORPUSCULAR HGB CONC 32.2 g/dL (32.0-36.0); PLATELET COUNT (AUTO) 350 K/uL (130-400); RED BLOOD CELL COUNT(AUTO) 2.81 MIL/uL (4.00-5.50); RED CELL DISTRIBUTION WIDTH 15.2 % (11.0-15.5); WHITE BLOOD COUNT (AUTO) 15.3 K/uL (4.8-10.8)
[2020-06-08 06:59] LABS: ALBUMIN 2.3 g/dL (3.5-5.0); BILIRUBIN,TOTAL 0.6 mg/dL (0.2-1.0); POTASSIUM 4.4 mmol/L (3.5-5.1); TOTAL PROTEIN, SERUM 6.8 g/dL (6.0-8.3)
[2020-06-08 07:30] LABS: CREATININE 10.2 mg/dL (0.5-1.5)
[2020-06-08 07:34] LABS: CRP QUANTITATIVE 177.8 mg/L (0.00-9.0)
[2020-06-08 08:00] VITALS: BP 135/73
[2020-06-08] MEDS ORDERED: INSULN ASP PRT SQ SCH (08:00)
[2020-06-08] MEDS ORDERED: INSULIN ASPART SQ SCH (08:00)
[2020-06-08] MEDS: INSULIN LISPRO 100 UNIT/ML 3ML SQ SCH ×2 (08:00→12:34)
[2020-06-08] MEDS: CITALOPRAM 20 MG TABLET PO SCH (10:20)
[2020-06-08] MEDS: ASCORBIC ACID 500 MG TAB PO SCH (10:20)
[2020-06-08] MEDS: PANTOPRAZOLE SODIUM 40 MG TABLET.DR PO SCH (10:20)
[2020-06-08] MEDS: FOLIC ACID/VITAMIN B COMP W-C 1 CAP TAB PO SCH (10:20)
[2020-06-08] MEDS: ENOXAPARIN SODIUM 100 MG/1 ML SQ SCH (10:21)
[2020-06-08] MEDS: ESTRADIOL 0.5 MG TABLET PO SCH (10:21)
[2020-06-08] MEDS: DOXYCYCLINE HYCLATE 100 MG TABLET PO SCH ×2 (10:21→21:03)
[2020-06-08] MEDS: ZINC SULFATE 220 CAPSULE PO SCH (10:21)
[2020-06-08] MEDS: CALCIUM ACETATE 667 MG CAPSULE PO SCH ×3 (10:22→17:00)
[2020-06-08] MEDS: FAMOTIDINE 20MG TAB 20 MG TAB PO SCH (10:27)
[2020-06-08] MEDS: INSULIN GLARGINE 100 UNITS/ML 10 ML VIAL SQ SCH (10:44)
[2020-06-08 11:00] VITALS: BP 140/80
[2020-06-08] MEDS ORDERED: VANCOMYCIN PROTOCOL PER PHARMACY IV SCH (11:30)
[2020-06-08] MEDS: MEROPENEM 1 GM VIAL IVP SCH (12:28)
[2020-06-08] MEDS ORDERED: VANCOMYCIN 1.75 GM in SODIUM CHLORIDE 0.9% 250 ML IV ONE (13:00)
[2020-06-08 16:16] VITALS: BP 135/70
[2020-06-08] MEDS: ZOLPIDEM TARTRATE 5 MG TAB PO SCH (19:59)
[2020-06-08] MEDS: LOSARTAN 100 MG TABLET PO SCH (21:00)
[2020-06-08] MEDS ORDERED: EPOETIN ALFA 10,000 UNIT/ML VIAL SQ SCH (21:00)
[2020-06-08] MEDS: AMLODIPINE BESYLATE 5 MG TAB PO SCH (21:00)
[2020-06-08] MEDS: METOPROLOL SUCCINATE 50 MG TAB.SR.24H PO SCH (21:03)
[2020-06-08 21:17] VITALS: BP 122/67
[2020-06-09 00:13] VITALS: BP 146/80
[2020-06-09] MEDS: ALBUTEROL INHALER 90MCG/INH IH SCH ×6 (03:11→21:02)
[2020-06-09] MEDS: METHYLPREDNISOLONE SOD SUCC 125MG/2ML VIAL IVP SCH ×3 (03:12→18:00)
[2020-06-09 03:51] VITALS: BP 151/83
[2020-06-09] MEDS: INSULIN HUMULIN R 100 UNIT/ML 3ML SQ SCH ×4 (05:43→21:00)
[2020-06-09 05:58] LABS: MEAN CORPUSCULAR HEMOGLOBIN 30.3 pg (27.0-33.0); MEAN CORPUSCULAR HGB CONC 31.8 g/dL (32.0-36.0); MEAN CORPUSCULAR VOLUME 95.2 fL (79-99); PLATELET COUNT (AUTO) 394 K/uL (130-400); RED BLOOD CELL COUNT(AUTO) 2.94 MIL/uL (4.00-5.50); RED CELL DISTRIBUTION WIDTH 14.8 % (11.0-15.5); WHITE BLOOD COUNT (AUTO) 19.2 K/uL (4.8-10.8)
[2020-06-09 06:24] LABS: CREATININE 6.8 mg/dL (0.5-1.5); POTASSIUM 4.3 mmol/L (3.5-5.1)
[2020-06-09 07:05] LABS: CRP QUANTITATIVE 173.7 mg/L (0.00-9.0)
[2020-06-09 08:00] VITALS: BP 132/69
[2020-06-09] MEDS ORDERED: INSULIN LISPRO 100 UNIT/ML 3ML SQ SCH (08:00)
[2020-06-09] MEDS: INSULIN LISPRO 100 UNIT/ML 3ML SQ SCH ×3 (08:00→16:16)
[2020-06-09 08:14] LABS: HEPATITIS Bs ANTIGEN SCREEN P Negative (Negative)
[2020-06-09] MEDS ORDERED: INSULIN NPH 100 UNIT/ML 3ML SQ SCH ×2 (09:00→20:00)
[2020-06-09] MEDS ORDERED: INSULIN GLARGINE 100 UNITS/ML 10 ML VIAL SQ SCH ×2 (09:00)
[2020-06-09] MEDS: FOLIC ACID/VITAMIN B COMP W-C 1 CAP TAB PO SCH (10:02)
[2020-06-09] MEDS: DOXYCYCLINE HYCLATE 100 MG TABLET PO SCH ×2 (10:03→21:02)
[2020-06-09] MEDS: ASCORBIC ACID 500 MG TAB PO SCH (10:03)
[2020-06-09] MEDS: CITALOPRAM 20 MG TABLET PO SCH (10:03)
[2020-06-09] MEDS: ESTRADIOL 0.5 MG TABLET PO SCH (10:03)
[2020-06-09] MEDS: FAMOTIDINE 20MG TAB 20 MG TAB PO SCH (10:03)
[2020-06-09] MEDS: PANTOPRAZOLE SODIUM 40 MG TABLET.DR PO SCH (10:03)
[2020-06-09] MEDS: ZINC SULFATE 220 CAPSULE PO SCH (10:03)
[2020-06-09] MEDS: CALCIUM ACETATE 667 MG CAPSULE PO SCH ×3 (10:04→17:14)
[2020-06-09] MEDS: ENOXAPARIN SODIUM 100 MG/1 ML SQ SCH (10:05)
[2020-06-09] MEDS: MEROPENEM 1 GM VIAL IVP SCH (10:08)
[2020-06-09 11:00] VITALS: BP 132/77
[2020-06-09 11:38] LABS: LYMPHOCYTES % (MANUAL) 1 % (22-44); MAN.DIFF COMMENT-IMPRESSION MANUAL DIFFERENTIAL; MONOCYTES % (MANUAL) 2 % (2-9); PLATELET MORPHOLOGY COMMENT ADEQUATE; SEGMENTED NEUTROPHILS % 97 % (40-70)
--- NOTE | 2020-06-09 12:24 | NUR ---
RDSCREEN - LOS X 9 Pt admitted with COVID-19 PNA, ESRD on HD. Renal dialysis diet order in place. Pt with decreased PO appetite. No report of GI distress. WBC 19.2 (increasing), BUN 56, Cr 6.8, GFR 7, BG 315m LDH 652, Alb 2.3. Hemodialysis in place. Vitamin C, Zinc, Nephrovite supplementation in place. Obesity Class II. Recommend modify diet order to 60gm CCD Recommend increase Vitamin C supp to BID Recommend 60mL ProMod QD RD to continue to monitor. Please notify as additional nutrition concerns arise. Thank you.
[2020-06-09] MEDS: GABAPENTIN 100 MG CAPSULE PO SCH (13:07)
[2020-06-09 13:11] LABS: ALBUMIN 2.4 g/dL (3.5-5.0); BILIRUBIN,TOTAL 0.5 mg/dL (0.2-1.0); CREATININE 7.1 mg/dL (0.5-1.5); POTASSIUM 4.3 mmol/L (3.5-5.1); TOTAL PROTEIN, SERUM 6.9 g/dL (6.0-8.3)
--- NOTE | 2020-06-09 15:13 | NUR ---
RD UPDATE Notification for Nepro Supplementation received. Spoke to RN, Recommend 60mL ProMod QD secondary to elevated BG. ProMod okay per RN. RD to continue to monitor.
[2020-06-09 16:00] VITALS: BP 137/92
[2020-06-09] MEDS ORDERED: DEXTROSE 50%-WATER 50 ML DISP.SYRIN IV ONE (16:09)
--- NOTE | 2020-06-09 17:17 | NUR ---
Patient still on BiPAP and tolerating well. RT attempted to wean off but pt began to desat and Bipap was restarted. Will continue to monitor for any changes.
[2020-06-09 20:00] VITALS: BP 142/80
[2020-06-09] MEDS: ZOLPIDEM TARTRATE 5 MG TAB PO SCH (20:51)
[2020-06-09] MEDS: AMLODIPINE BESYLATE 5 MG TAB PO SCH (21:02)
[2020-06-09] MEDS: METOPROLOL SUCCINATE 50 MG TAB.SR.24H PO SCH (21:02)
[2020-06-09] MEDS: LOSARTAN 100 MG TABLET PO SCH (21:02)
[2020-06-10] VITALS: BP 119/60
[2020-06-10] MEDS: ALBUTEROL INHALER 90MCG/INH IH SCH ×6 (02:49→20:29)
[2020-06-10] MEDS: METHYLPREDNISOLONE SOD SUCC 125MG/2ML VIAL IVP SCH ×3 (02:49→18:39)
[2020-06-10 04:00] VITALS: BP 118/62
[2020-06-10] MEDS: INSULIN HUMULIN R 100 UNIT/ML 3ML SQ SCH ×6 (06:14→20:30)
[2020-06-10 06:20] LABS: HEMATOCRIT 25.4 % (36-48); MEAN CORPUSCULAR HEMOGLOBIN 30.8 pg (27.0-33.0); MEAN CORPUSCULAR HGB CONC 31.9 g/dL (32.0-36.0); MEAN CORPUSCULAR VOLUME 96.6 fL (79-99); PLATELET COUNT (AUTO) 373 K/uL (130-400); RED BLOOD CELL COUNT(AUTO) 2.63 MIL/uL (4.00-5.50); RED CELL DISTRIBUTION WIDTH 15.1 % (11.0-15.5); WHITE BLOOD COUNT (AUTO) 21.9 K/uL (4.8-10.8)
[2020-06-10 06:33] LABS: POTASSIUM 5.2 mmol/L (3.5-5.1)
[2020-06-10 06:48] LABS: CREATININE 9.4 mg/dL (0.5-1.5)
[2020-06-10 08:00] VITALS: BP 117/67
[2020-06-10] MEDS: INSULIN LISPRO 100 UNIT/ML 3ML SQ SCH (08:00)
[2020-06-10 08:35] LABS: EOSINOPHILS % (MANUAL) 1 % (1-6); LYMPHOCYTES % (MANUAL) 4 % (22-44); MAN.DIFF COMMENT-IMPRESSION MANUAL DIFFERENTIAL; MONOCYTES % (MANUAL) 1 % (2-9); PLATELET MORPHOLOGY COMMENT ADEQUATE; SEGMENTED NEUTROPHILS % 94 % (40-70)
[2020-06-10] MEDS: DOXYCYCLINE HYCLATE 100 MG TABLET PO SCH ×2 (09:26→20:29)
[2020-06-10] MEDS: CITALOPRAM 20 MG TABLET PO SCH (09:26)
[2020-06-10] MEDS: ZINC SULFATE 220 CAPSULE PO SCH (09:27)
[2020-06-10] MEDS: GABAPENTIN 100 MG CAPSULE PO SCH (09:27)
[2020-06-10] MEDS: FOLIC ACID/VITAMIN B COMP W-C 1 CAP TAB PO SCH (09:27)
[2020-06-10] MEDS: ASCORBIC ACID 500 MG TAB PO SCH (09:27)
[2020-06-10] MEDS: PANTOPRAZOLE SODIUM 40 MG TABLET.DR PO SCH (09:27)
[2020-06-10] MEDS: ESTRADIOL 0.5 MG TABLET PO SCH (09:28)
[2020-06-10] MEDS: CALCIUM ACETATE 667 MG CAPSULE PO SCH ×3 (09:28→18:37)
[2020-06-10] MEDS: FAMOTIDINE 20MG TAB 20 MG TAB PO SCH (09:28)
[2020-06-10] MEDS: ENOXAPARIN SODIUM 100 MG/1 ML SQ SCH (09:31)
[2020-06-10] MEDS: MEROPENEM 1 GM VIAL IVP SCH (09:32)
[2020-06-10] MEDS ORDERED: INSULIN NPH 100 UNIT/ML 3ML SQ SCH (10:30)
[2020-06-10 11:00] VITALS: BP 107/66
[2020-06-10] MEDS: BENZONATATE 100 MG CAPSULE PO SCH ×2 (13:23→20:29)
[2020-06-10 16:00] VITALS: BP 147/76
[2020-06-10] MEDS: ZOLPIDEM TARTRATE 5 MG TAB PO SCH (19:38)
[2020-06-10 20:00] VITALS: BP 125/78
[2020-06-10] MEDS: METOPROLOL SUCCINATE 50 MG TAB.SR.24H PO SCH (20:29)
[2020-06-10] MEDS: LOSARTAN 100 MG TABLET PO SCH (20:29)
[2020-06-10] MEDS: AMLODIPINE BESYLATE 5 MG TAB PO SCH (20:29)
[2020-06-11] VITALS (7 sets, daily range): BP systolic 117–156; BP diastolic 58–85
[2020-06-11] MEDS: INSULIN HUMULIN R 100 UNIT/ML 3ML SQ SCH ×8 (00:07→23:54)
[2020-06-11] MEDS: DiphenhydrAMINE HCL 50 MG/ML VIAL IV PRN ×2 (00:09→23:01)
[2020-06-11] MEDS: ALBUTEROL INHALER 90MCG/INH IH SCH ×6 (02:18→22:22)
[2020-06-11] MEDS: METHYLPREDNISOLONE SOD SUCC 125MG/2ML VIAL IVP SCH ×3 (02:46→19:13)
[2020-06-11 06:43] LABS: BASOPHILS % (AUTO) 0.2 % (0.0-5.0); EOSINOPHILS % (AUTO) 0.1 % (0.0-8.0); HEMATOCRIT 23.7 % (36-48); LYMPHOCYTES % (AUTO) 3.7 % (21.0-51.0); MEAN CORPUSCULAR HGB CONC 32.1 g/dL (32.0-36.0); MEAN CORPUSCULAR VOLUME 96.7 fL (79-99); NEUTROPHILS % (AUTO) 87.7 % (40.0-77.0); NUCLEATED RED BLOOD CELLS 0.2 % (0.0-0.19); PLATELET COUNT (AUTO) 385 K/uL (130-400); RED BLOOD CELL COUNT(AUTO) 2.45 MIL/uL (4.00-5.50); RED CELL DISTRIBUTION WIDTH 14.6 % (11.0-15.5)
[2020-06-11 07:30] LABS: BILIRUBIN,TOTAL 0.4 mg/dL (0.2-1.0); CREATININE 7.1 mg/dL (0.5-1.5); CRP QUANTITATIVE 56.6 mg/L (0.00-9.0); POTASSIUM 4.9 mmol/L (3.5-5.1)
[2020-06-11] MEDS: FOLIC ACID/VITAMIN B COMP W-C 1 CAP TAB PO SCH (07:56)
[2020-06-11] MEDS: FAMOTIDINE 20MG TAB 20 MG TAB PO SCH (07:56)
[2020-06-11] MEDS: ZINC SULFATE 220 CAPSULE PO SCH (07:56)
[2020-06-11] MEDS: ASCORBIC ACID 500 MG TAB PO SCH (07:56)
[2020-06-11] MEDS: DOXYCYCLINE HYCLATE 100 MG TABLET PO SCH ×2 (07:57→22:22)
[2020-06-11] MEDS: PANTOPRAZOLE SODIUM 40 MG TABLET.DR PO SCH (07:57)
[2020-06-11] MEDS: CITALOPRAM 20 MG TABLET PO SCH (07:57)
[2020-06-11] MEDS: GABAPENTIN 100 MG CAPSULE PO SCH (07:57)
[2020-06-11] MEDS: ESTRADIOL 0.5 MG TABLET PO SCH (07:57)
[2020-06-11] MEDS: CALCIUM ACETATE 667 MG CAPSULE PO SCH ×3 (07:58→18:03)
[2020-06-11] MEDS: ENOXAPARIN SODIUM 100 MG/1 ML SQ SCH (07:58)
[2020-06-11] MEDS: MEROPENEM 1 GM VIAL IVP SCH (07:58)
[2020-06-11] MEDS: BENZONATATE 100 MG CAPSULE PO SCH ×3 (08:08→22:21)
--- NOTE | 2020-06-11 08:54 | NUR ---
Patient received 4 units of Insulin R during breakfast.
[2020-06-11] MEDS ORDERED: INSULIN NPH 100 UNIT/ML 3ML SQ SCH (09:00)
[2020-06-11] MEDS: ZOLPIDEM TARTRATE 5 MG TAB PO SCH (21:00)
[2020-06-11] MEDS: METOPROLOL SUCCINATE 50 MG TAB.SR.24H PO SCH (22:21)
[2020-06-11] MEDS: LOSARTAN 100 MG TABLET PO SCH (22:22)
[2020-06-11] MEDS: AMLODIPINE BESYLATE 5 MG TAB PO SCH (22:22)
[2020-06-12] MEDS: ALBUTEROL INHALER 90MCG/INH IH SCH ×5 (02:45→16:53)
[2020-06-12] MEDS: METHYLPREDNISOLONE SOD SUCC 125MG/2ML VIAL IVP SCH ×3 (03:18→17:13)
[2020-06-12] MEDS: INSULIN HUMULIN R 100 UNIT/ML 3ML SQ SCH ×7 (06:17→21:28)
[2020-06-12 06:25] VITALS: BP 134/63
[2020-06-12 07:32] LABS: BASOPHILS % (AUTO) 0.3 % (0.0-5.0); EOSINOPHILS % (AUTO) 0.7 % (0.0-8.0); HEMATOCRIT 26.2 % (36-48); LYMPHOCYTES % (AUTO) 3.2 % (21.0-51.0); MEAN CORPUSCULAR HEMOGLOBIN 31.1 pg (27.0-33.0); MEAN CORPUSCULAR HGB CONC 31.7 g/dL (32.0-36.0); MEAN CORPUSCULAR VOLUME 98.1 fL (79-99); MONOCYTES % (AUTO) 2.7 % (3.0-13.0); NEUTROPHILS % (AUTO) 87.9 % (40.0-77.0); NUCLEATED RED BLOOD CELLS 0.3 % (0.0-0.19); PLATELET COUNT (AUTO) 440 K/uL (130-400); RED BLOOD CELL COUNT(AUTO) 2.67 MIL/uL (4.00-5.50); WHITE BLOOD COUNT (AUTO) 28.7 K/uL (4.8-10.8)
[2020-06-12 07:50] LABS: ALBUMIN 2.2 g/dL (3.5-5.0); BILIRUBIN,TOTAL 0.5 mg/dL (0.2-1.0); CRP QUANTITATIVE 35.4 mg/L (0.00-9.0); TOTAL PROTEIN, SERUM 6.4 g/dL (6.0-8.3)
[2020-06-12 08:00] VITALS: BP 139/85
[2020-06-12 08:05] LABS: CREATININE 9.8 mg/dL (0.5-1.5); POTASSIUM 6.4 mmol/L (3.5-5.1)
[2020-06-12] MEDS: PANTOPRAZOLE SODIUM 40 MG TABLET.DR PO SCH (09:36)
[2020-06-12] MEDS: ZINC SULFATE 220 CAPSULE PO SCH (09:36)
[2020-06-12] MEDS: DOXYCYCLINE HYCLATE 100 MG TABLET PO SCH ×2 (09:36→21:21)
[2020-06-12] MEDS: ASCORBIC ACID 500 MG TAB PO SCH (09:37)
[2020-06-12] MEDS: CITALOPRAM 20 MG TABLET PO SCH (09:37)
[2020-06-12] MEDS: GABAPENTIN 100 MG CAPSULE PO SCH (09:37)
[2020-06-12] MEDS: FOLIC ACID/VITAMIN B COMP W-C 1 CAP TAB PO SCH (09:37)
[2020-06-12] MEDS: BENZONATATE 100 MG CAPSULE PO SCH ×3 (09:37→21:21)
[2020-06-12] MEDS: ESTRADIOL 0.5 MG TABLET PO SCH (09:38)
[2020-06-12] MEDS: CALCIUM ACETATE 667 MG CAPSULE PO SCH ×3 (09:38→16:55)
[2020-06-12] MEDS: FAMOTIDINE 20MG TAB 20 MG TAB PO SCH (09:39)
[2020-06-12] MEDS: ENOXAPARIN SODIUM 100 MG/1 ML SQ SCH (09:40)
[2020-06-12] MEDS: MEROPENEM 1 GM VIAL IVP SCH (09:41)
[2020-06-12] MEDS: INSULIN NPH 100 UNIT/ML 3ML SQ SCH (10:05)
[2020-06-12] MEDS ORDERED: NITROGLYCERIN 0.4 MG SL TAB SL PRN (11:45)
[2020-06-12] MEDS ORDERED: LIDOCAINE HCL-MPF 1% 2ML VIAL IJ PRN (11:45)
[2020-06-12] MEDS ORDERED: SODIUM CHLORIDE 0.9% 1000ML 1,000 ML IV PRN (11:45)
[2020-06-12] MEDS ORDERED: ACETAMINOPHEN 325 MG TAB PO PRN (11:45)
[2020-06-12] MEDS ORDERED: 0.9% SODIUM CHLORIDE 1000 ML IV BAG IV PRN (11:45)
[2020-06-12] MEDS ORDERED: HEPARIN SODIUM 5000UNIT/ML 1ML VIAL IJ PRN ×2 (11:45)
[2020-06-12 12:00] VITALS: BP 98/67
--- NOTE | 2020-06-12 13:11 | NUR ---
MIGDALIA HAS ATTEMPTED FAMILY CONTACT X3 . NO ANSWER AT NUMBERS PROVIDED IN CHART. PATIENT IN COVID UNIT. CALL TO KT BARAKAT ASSIGNED TO PATIENT TO SEE IF PATIENT CAN SUPPLY BETTER NUMBERS , WAITING CALL BACK, CALL TO ROOM PHONE [phone], NO ANSWER Addendum: 06/12/20 at 1318 by RICHY VALENCIA RN CM Amended: Links added.
[2020-06-12] MEDS ORDERED: EPOETIN ALFA 10,000 UNIT/ML VIAL SQ SCH (14:15)
[2020-06-12 16:00] VITALS: BP 154/84
[2020-06-12 21:15] VITALS: BP 140/71
[2020-06-12] MEDS: ZOLPIDEM TARTRATE 5 MG TAB PO SCH (21:19)
[2020-06-13] MEDS: ALBUTEROL INHALER 90MCG/INH IH SCH ×6 (00:01→18:37)
[2020-06-13] MEDS: INSULIN HUMULIN R 100 UNIT/ML 3ML SQ SCH ×8 (00:32→21:00)
[2020-06-13 00:41] VITALS: BP 151/75
[2020-06-13 05:14] LABS: BASOPHILS % (AUTO) 0.2 % (0.0-5.0); EOSINOPHILS % (AUTO) 0.1 % (0.0-8.0); HEMATOCRIT 25.6 % (36-48); LYMPHOCYTES % (AUTO) 6.5 % (21.0-51.0); MEAN CORPUSCULAR HEMOGLOBIN 30.8 pg (27.0-33.0); MEAN CORPUSCULAR HGB CONC 31.3 g/dL (32.0-36.0); MEAN CORPUSCULAR VOLUME 98.5 fL (79-99); MONOCYTES % (AUTO) 4.1 % (3.0-13.0); NEUTROPHILS % (AUTO) 82.7 % (40.0-77.0); NUCLEATED RED BLOOD CELLS 0.1 % (0.0-0.19); PLATELET COUNT (AUTO) 405 K/uL (130-400); RED CELL DISTRIBUTION WIDTH 15.3 % (11.0-15.5); WHITE BLOOD COUNT (AUTO) 22.2 K/uL (4.8-10.8)
[2020-06-13 05:40] LABS: ALBUMIN 2.2 g/dL (3.5-5.0); BILIRUBIN,TOTAL 0.4 mg/dL (0.2-1.0); CREATININE 5.7 mg/dL (0.5-1.5); CRP QUANTITATIVE 50.9 mg/L (0.00-9.0); POTASSIUM 4.3 mmol/L (3.5-5.1); TOTAL PROTEIN, SERUM 6.3 g/dL (6.0-8.3)
[2020-06-13] MEDS: METHYLPREDNISOLONE SOD SUCC 125MG/2ML VIAL IVP SCH ×3 (06:09→20:32)
[2020-06-13 06:35] VITALS: BP 150/69
[2020-06-13 08:00] VITALS: BP 142/69
[2020-06-13] MEDS: INSULIN NPH 100 UNIT/ML 3ML SQ SCH (09:00)
[2020-06-13] MEDS ORDERED: PHARMACY COMMUNICATION MISC SCH (09:00)
[2020-06-13] MEDS: ZINC SULFATE 220 CAPSULE PO SCH (09:00)
[2020-06-13 09:12] LABS: HEPATITIS A ANTIBODY IGM Negative (Negative); HEPATITIS B CORE IGM Negative (Negative); HEPATITIS Bs ANTIGEN SCREEN P Negative (Negative)
[2020-06-13] MEDS ORDERED: ALBUMIN (HUMAN) 25% 200 ML IV SCH (09:15)
[2020-06-13] MEDS: LORAZEPAM 2 MG/ML 1 ML VIAL IVP PRN (10:18)
[2020-06-13 11:36] VITALS: BP 102/68
[2020-06-13] MEDS: MEROPENEM 1 GM VIAL IVP SCH (12:14)
[2020-06-13] MEDS: ENOXAPARIN SODIUM 100 MG/1 ML SQ SCH (12:14)
[2020-06-13] MEDS: PANTOPRAZOLE SODIUM 40 MG TABLET.DR PO SCH (12:15)
[2020-06-13] MEDS: FAMOTIDINE 20MG TAB 20 MG TAB PO SCH (12:15)
[2020-06-13] MEDS: ESTRADIOL 0.5 MG TABLET PO SCH (12:15)
[2020-06-13] MEDS: ASCORBIC ACID 500 MG TAB PO SCH (12:15)
[2020-06-13] MEDS: CALCIUM ACETATE 667 MG CAPSULE PO SCH ×3 (12:15→17:13)
[2020-06-13] MEDS: DOXYCYCLINE HYCLATE 100 MG TABLET PO SCH (12:15)
[2020-06-13] MEDS: CITALOPRAM 20 MG TABLET PO SCH (12:16)
[2020-06-13] MEDS: FOLIC ACID/VITAMIN B COMP W-C 1 CAP TAB PO SCH (12:16)
[2020-06-13] MEDS: BENZONATATE 100 MG CAPSULE PO SCH ×3 (12:16→20:32)
[2020-06-13] MEDS: GABAPENTIN 100 MG CAPSULE PO SCH (12:16)
--- NOTE | 2020-06-13 12:55 | NUR ---
DR. CURRY CALLED DR. CURRY TO MAKE HIM AWARE PT. IS 02 84 ON BIPAP, HR 108, NEW ORDERS TO LAY PATIENT PRON, NEW SETTING FOR BIPAP 06/11.
[2020-06-13 13:12] LABS: ABG BASE EXCESS -0.6 mmol/L (-2.0-3.0); ABG HCO3 23.3 mmol/L (21.0-28.0); ABG OXYGEN SATURATION 85.6 % (95.0-99.0); ABG PCO2 36 mmHg (32-45)
--- NOTE | 2020-06-13 13:15 | NUR ---
PT. UNABLE TO LAY PRONE STILL HAVING SOB 85%, HR 108
--- NOTE | 2020-06-13 13:48 | NUR ---
PT SITTING UP IN BED SPO2 85%, HR 106 PT IS DNR.
--- NOTE | 2020-06-13 13:59 | NUR ---
DR. CURRY PER DR. CURRY HE WANTS PATIENT ON PRECEDEX 0.3 AND TITRATE. TSF TO 2ND FL PT IS DNR.
[2020-06-13] MEDS ORDERED: LORAZEPAM 2 MG/ML 1 ML VIAL IM SCH (14:45)
[2020-06-13 16:00] VITALS: BP 132/66
--- NOTE | 2020-06-13 17:00 | NUR ---
PT SLEEPING AND RESTING COMFORTABLY SPO2 92%
[2020-06-13 19:55] VITALS: BP 151/68
[2020-06-13] MEDS: ZOLPIDEM TARTRATE 5 MG TAB PO SCH (20:33)
[2020-06-14] VITALS (7 sets, daily range): BP systolic 142–168; BP diastolic 66–99
--- NOTE | 2020-06-14 00:07 | NUR ---
0000 insulin Pt had dialysis today and sleeping and did not eat dinner. resting quietly O2 92% Insulin held due to not eating and hx of low bs
[2020-06-14] MEDS: METHYLPREDNISOLONE SOD SUCC 125MG/2ML VIAL IVP SCH ×3 (03:00→18:42)
[2020-06-14] MEDS: INSULIN HUMULIN R 100 UNIT/ML 3ML SQ SCH ×8 (07:05→21:03)
[2020-06-14] MEDS: FAMOTIDINE 20MG TAB 20 MG TAB PO SCH (08:16)
[2020-06-14] MEDS: ESTRADIOL 0.5 MG TABLET PO SCH (08:16)
[2020-06-14] MEDS: ZINC SULFATE 220 CAPSULE PO SCH (08:16)
[2020-06-14] MEDS: CALCIUM ACETATE 667 MG CAPSULE PO SCH ×3 (08:16→17:03)
[2020-06-14] MEDS: FOLIC ACID/VITAMIN B COMP W-C 1 CAP TAB PO SCH (08:16)
[2020-06-14] MEDS: CITALOPRAM 20 MG TABLET PO SCH (08:17)
[2020-06-14] MEDS: BENZONATATE 100 MG CAPSULE PO SCH ×3 (08:17→20:47)
[2020-06-14] MEDS: PANTOPRAZOLE SODIUM 40 MG TABLET.DR PO SCH (08:17)
[2020-06-14] MEDS: GABAPENTIN 100 MG CAPSULE PO SCH (08:17)
[2020-06-14] MEDS: ASCORBIC ACID 500 MG TAB PO SCH (08:17)
[2020-06-14] MEDS: ENOXAPARIN SODIUM 100 MG/1 ML SQ SCH (08:18)
[2020-06-14] MEDS: INSULIN NPH 100 UNIT/ML 3ML SQ SCH (08:18)
[2020-06-14] MEDS: LORAZEPAM 2 MG/ML 1 ML VIAL IVP PRN (08:26)
[2020-06-14 08:27] LABS: HEMATOCRIT 23.2 % (36-48); MEAN CORPUSCULAR HEMOGLOBIN 32.2 pg (27.0-33.0); MEAN CORPUSCULAR HGB CONC 32.3 g/dL (32.0-36.0); MEAN CORPUSCULAR VOLUME 99.6 fL (79-99); NUCLEATED RED BLOOD CELLS 0.2 % (0.0-0.19); PLATELET COUNT (AUTO) 295 K/uL (130-400); RED BLOOD CELL COUNT(AUTO) 2.33 MIL/uL (4.00-5.50); RED CELL DISTRIBUTION WIDTH 15.9 % (11.0-15.5); WHITE BLOOD COUNT (AUTO) 22.7 K/uL (4.8-10.8)
[2020-06-14 08:40] LABS: CREATININE 6.7 mg/dL (0.5-1.5); PHOSPHORUS 8.2 mg/dL (2.5-4.9); POTASSIUM 5.3 mmol/L (3.5-5.1)
[2020-06-14 09:50] LABS: BAND NEUTROPHILS % (MANUAL) 1 % (0-2); LYMPHOCYTES % (MANUAL) 7 % (22-44); PLATELET MORPHOLOGY COMMENT ADEQUATE; SEGMENTED NEUTROPHILS % 92 % (40-70)
[2020-06-14] MEDS: MEROPENEM 1 GM VIAL IVP SCH (10:57)
--- NOTE | 2020-06-14 12:30 | NUR ---
PT REFUSED LUNCH
--- NOTE | 2020-06-14 17:00 | NUR ---
PT REFUSED DINNER D/T SOB, STATES IT'S GETTING HARDER TO BREATH. BIPAP IS 18/12, 2 100%, SPO2 91-88%
[2020-06-14] MEDS: ZOLPIDEM TARTRATE 5 MG TAB PO SCH (20:47)
[2020-06-14] MEDS: ALBUTEROL INHALER 90MCG/INH IH SCH ×2 (20:47→23:37)
[2020-06-15] VITALS: BP 142/60
[2020-06-15] MEDS: ALBUTEROL INHALER 90MCG/INH IH SCH ×2 (02:45→18:45)
[2020-06-15 04:00] VITALS: BP 158/78
[2020-06-15] MEDS: INSULIN HUMULIN R 100 UNIT/ML 3ML SQ SCH ×7 (06:00→17:17)
[2020-06-15] MEDS: METHYLPREDNISOLONE SOD SUCC 125MG/2ML VIAL IVP SCH ×2 (06:19→14:48)
[2020-06-15 06:38] LABS: POTASSIUM 5.8 mmol/L (3.5-5.1)
[2020-06-15 06:52] LABS: CREATININE 8.5 mg/dL (0.5-1.5)
[2020-06-15 07:41] LABS: BASOPHILS % (AUTO) 0.2 % (0.0-5.0); EOSINOPHILS % (AUTO) 0.1 % (0.0-8.0); HEMATOCRIT 24.8 % (36-48); LYMPHOCYTES % (AUTO) 6.4 % (21.0-51.0); MEAN CORPUSCULAR HEMOGLOBIN 31.1 pg (27.0-33.0); MEAN CORPUSCULAR HGB CONC 31.9 g/dL (32.0-36.0); MEAN CORPUSCULAR VOLUME 97.6 fL (79-99); MONOCYTES % (AUTO) 3.4 % (3.0-13.0); NEUTROPHILS % (AUTO) 86.3 % (40.0-77.0); NUCLEATED RED BLOOD CELLS 0.3 % (0.0-0.19); PLATELET COUNT (AUTO) 376 K/uL (130-400); RED BLOOD CELL COUNT(AUTO) 2.54 MIL/uL (4.00-5.50); WHITE BLOOD COUNT (AUTO) 29.3 K/uL (4.8-10.8)
[2020-06-15 08:00] VITALS: BP 141/81
[2020-06-15] MEDS: CALCIUM ACETATE 667 MG CAPSULE PO SCH ×3 (08:43→17:12)
[2020-06-15] MEDS: ESTRADIOL 0.5 MG TABLET PO SCH (08:43)
[2020-06-15] MEDS: CITALOPRAM 20 MG TABLET PO SCH (08:43)
[2020-06-15] MEDS: FOLIC ACID/VITAMIN B COMP W-C 1 CAP TAB PO SCH (08:44)
[2020-06-15] MEDS: GABAPENTIN 100 MG CAPSULE PO SCH (08:44)
[2020-06-15] MEDS: FAMOTIDINE 20MG TAB 20 MG TAB PO SCH (08:45)
[2020-06-15] MEDS: ASCORBIC ACID 500 MG TAB PO SCH (08:46)
[2020-06-15] MEDS: PANTOPRAZOLE SODIUM 40 MG TABLET.DR PO SCH (08:46)
[2020-06-15] MEDS: BENZONATATE 100 MG CAPSULE PO SCH ×2 (08:46→17:13)
[2020-06-15] MEDS: ZINC SULFATE 220 CAPSULE PO SCH (08:47)
[2020-06-15] MEDS: ENOXAPARIN SODIUM 100 MG/1 ML SQ SCH (08:50)
[2020-06-15] MEDS ORDERED: INSULIN NPH 100 UNIT/ML 3ML SQ SCH (09:00)
[2020-06-15] MEDS ORDERED: ALBUMIN (HUMAN) 25% 200 ML IV ONE (10:10)
--- NOTE | 2020-06-15 10:18 | NUR ---
Discussed DNR with pt for chart consent, pt rescinded her DNR code status and elected to have FULL CODE status. Addendum: 06/15/20 at 1020 by ANANT TAN RN RN FULL CODE STATUS
[2020-06-15] MEDS: MEROPENEM 1 GM VIAL IVP SCH (11:30)
[2020-06-15 12:00] VITALS: BP 106/75
[2020-06-15] MEDS: VANCOMYCIN 1.25 GM in SODIUM CHLORIDE 0.9% 250 ML IV SCH ×2 (13:00→17:14)
[2020-06-15] MEDS ORDERED: EPOETIN ALFA 10,000 UNIT/ML VIAL SQ SCH (13:45)
[2020-06-15 16:00] VITALS: BP 138/76
--- NOTE | 2020-06-15 16:00 | NUR ---
RECEIVED PT AAOx3. VSS. ABLE TO MAKE NEEDS KNOWN. COVID+, ISOLATION PRECAUTIONS MAINTAINED. RESPIRATIONS EVEN AND UNLABORED AT THIS TIME, BUT INCREASED ANXIETY NOTED. O2 SAT 89% ON 100% BI-PAP. RECEIVED ATIVAN PER DAY RN AT 15:30. DENIED PAIN. STATED, "I DON'T KNOW WHY I FEEL LIKE THIS." WILL CONTINUE TO MONITOR. SAFETY PRECAUTIONS IN PLACE.
--- NOTE | 2020-06-15 18:10 | NUR ---
PT WITH INCREASING ANXIETY, CONFUSION, RESTLESS MOVEMENT. STATING, "I CAN'T BREATH AND MY CHEST HURTS." RESPIRATIONS LABORED, USING ACCESSORY MUSCLES TO BREATHE. O2 SAT 75% ON 100% NRB. RAPID RESPONSE ACTIVATED. STAT EKG AND ABG DONE. BP 144/68, HR 130. O2 SAT INCREASED TO 84%. BLOOD GLUCOSE 312. DR. BANERJEE NOTIFIED VIA PHONE AND STATED AFTER ABG RESULTS AND STATED, "I'M EN ROUTE TO THE HOSPITAL. NOTIFY PULMONARY FOR INTUBATION, SEDATION, AND VENT SETTING." CONTINUED TO COMPLAIN OF CHEST PAIN. BP 150/70, HR 125, SUBLINGUAL NITRO ADMINISTERED AT 18:25. REQUESTED MEDICATION FOR ANXIETY. 18:28 BP 140/77, HR 120, O2 SAT 85%. 18:31 STRONGLY ENCOURAGED TO PRONE BUT REFUSED. REPOSITIONED TO RIGHT SIDE x2 ASSIST. BP 127/86, HR 122, O2 SAT 85%. 18:39 BP 109/86, HR 121, O2 SAT 85%. REMAINED IN RIGHT SIDE LYING POSITION, O2 SAT 89%. RT AND HOUSE SUP PRESENT. CONTINUOUS MONITORING ONGOING.
[2020-06-15 18:26] LABS: ABG OXYGEN SATURATION 68.1 % (95.0-99.0)
[2020-06-15 18:31] LABS: ABG BASE EXCESS -5.9 mmol/L (-2.0-3.0); ABG HCO3 18.6 mmol/L (21.0-28.0); ABG OXYGEN SATURATION 74.1 % (95.0-99.0); ABG PCO2 33 mmHg (32-45)
--- NOTE | 2020-06-15 18:54 | NUR ---
DR. CURRY NOTIFIED VIA PHONE PER DR. BANERJEE REQUEST FOR INTUBATION, SEDATION, AND VENT SETTINGS. NEW ORDERS RECEIVED. SEE ORDERS.
[2020-06-15] MEDS ORDERED: SODIUM CHLORIDE 0.9% 500ML 500 ML IV ONE ×2 (19:41→20:00)
[2020-06-15] MEDS ORDERED: PROPOFOL 1000 MG/100 ML 100 ML IV ONE (19:57)
--- NOTE | 2020-06-15 20:08 | NUR ---
INTUBATED PER ANESTHESIA. CENTRAL LINE AND A-LINE PER ANESTHESIA. AWAITING TRANSFER TO ICU. ANESTHESIA AND RT REMAINS AT BEDSIDE.
[2020-06-15] MEDS ORDERED: MIDAZOLAM HCL 50 MG in SODIUM CHLORIDE 0.9% 50 ML IV SCH (20:15)
[2020-06-15] MEDS ORDERED: PROPOFOL 1000 MG/100 ML 100 ML IV SCH (20:15)
[2020-06-15] MEDS ORDERED: FENTANYL CITRATE PF 0.05 MG/ML 1,000 MCG in SODIUM CHLORIDE 0.9% 100 ML IVPB SCH (20:15)
[2020-06-15] MEDS ORDERED: FENTANYL CITRATE PF 0.05 MG/ML 2,500 MCG in SODIUM CHLORIDE 0.9% 250 ML IVPB SCH (20:30)
[2020-06-15] MEDS ORDERED: SUCCINYLCHOLINE CHLORIDE 20 MG/ML 10 ML VIAL IVP SCH (20:30)
[2020-06-15] MEDS ORDERED: ROCURONIUM BROMIDE 10MG/1ML 5ML VL IV SCH (20:30)
[2020-06-15] MEDS ORDERED: NOREPINEPHRINE 4MG/NS 250ML 250 ML IV ONE (20:38)
[2020-06-15] MEDS ORDERED: COMPOUND NARC IV MISC 1 EACH IVSOLN MISC PRN (21:00)
--- NOTE | 2020-06-15 21:00 | NUR ---
BLOOD PRESSURE DECREASED, HR IN THE 30'S. CODE BLUE ACTIVATED AT 21:00. SEE CODE SHEET. CODE CEASED AT 21:[address] BANERJEE. SEE PHYSICIAN NOTES. FAMILY NOTIFIED PER DR. GEE.
[2020-06-15 21:02] LABS: ABG BASE EXCESS -14.6 mmol/L (-2.0-3.0); ABG HCO3 11.9 mmol/L (21.0-28.0); ABG PCO2 30 mmHg (32-45)
[2020-06-15] MEDS ORDERED: VASOPRESSIN 20 UNITS/NS 100ML IV SCH ×2 (21:15)
--- NOTE | 2020-06-15 22:15 | NUR ---
SPOKE WITH [facility], TO INQUIRE OF ARRANGEMENTS AND TEST BORER HELPER OF PATIENT'S PERSONAL BELONGINGS, WOULD LIKE HEAVENLY [place] IN [place], [place] NOTIFIED, BELONGINGS TO BE PICKED UP BY [facility] TOMORROW, 06/16/2020. INSTRUCTED TO NOTIFY SECURITY UPON ARRIVAL FOR PT'S PERSONAL BELONGINGS.
== END 2020-06-15 21:07 | disposition expired | DRG 871 ==
LOC: EDH 00:09 → EDHIP 02:38 → 4CH 06-02 22:48
PROVIDERS: ADMIT Hospitalist; ATTEND Hospitalist
PROC: 5A1D70Z Performance of Urinary Filtration, Intermittent, Less than 6 Hours Per Day (ICD-10-PCS; principal; 2020-06-01)
PROC: 5A1D70Z Performance of Urinary Filtration, Intermittent, Less than 6 Hours Per Day (ICD-10-PCS; 2020-06-03)
PROC: 5A09357 Assistance with Respiratory Ventilation, Less than 24 Consecutive Hours, Continuous Positive Airway Pressure (ICD-10-PCS; 2020-06-03)
PROC: 5A09357 Assistance with Respiratory Ventilation, Less than 24 Consecutive Hours, Continuous Positive Airway Pressure (ICD-10-PCS; 2020-06-04)
PROC: 5A1D70Z Performance of Urinary Filtration, Intermittent, Less than 6 Hours Per Day (ICD-10-PCS; 2020-06-05)
PROC: 5A09357 Assistance with Respiratory Ventilation, Less than 24 Consecutive Hours, Continuous Positive Airway Pressure (ICD-10-PCS; 2020-06-05)
PROC: 5A09457 Assistance with Respiratory Ventilation, 24-96 Consecutive Hours, Continuous Positive Airway Pressure (ICD-10-PCS; 2020-06-05)
PROC: 06HY33Z Insertion of Infusion Device into Lower Vein, Percutaneous Approach (ICD-10-PCS; 2020-06-05)
PROC: 5A1D70Z Performance of Urinary Filtration, Intermittent, Less than 6 Hours Per Day (ICD-10-PCS; 2020-06-06)
PROC: 5A09357 Assistance with Respiratory Ventilation, Less than 24 Consecutive Hours, Continuous Positive Airway Pressure (ICD-10-PCS; 2020-06-07)
PROC: 5A1D70Z Performance of Urinary Filtration, Intermittent, Less than 6 Hours Per Day (ICD-10-PCS; 2020-06-08)
PROC: 5A09457 Assistance with Respiratory Ventilation, 24-96 Consecutive Hours, Continuous Positive Airway Pressure (ICD-10-PCS; 2020-06-08)
PROC: 5A1D70Z Performance of Urinary Filtration, Intermittent, Less than 6 Hours Per Day (ICD-10-PCS; 2020-06-10)
PROC: 5A09357 Assistance with Respiratory Ventilation, Less than 24 Consecutive Hours, Continuous Positive Airway Pressure (ICD-10-PCS; 2020-06-11)
PROC: 5A1D70Z Performance of Urinary Filtration, Intermittent, Less than 6 Hours Per Day (ICD-10-PCS; 2020-06-12)
PROC: 5A09457 Assistance with Respiratory Ventilation, 24-96 Consecutive Hours, Continuous Positive Airway Pressure (ICD-10-PCS; 2020-06-12)
PROC: 5A1D70Z Performance of Urinary Filtration, Intermittent, Less than 6 Hours Per Day (ICD-10-PCS; 2020-06-13)
PROC: 5A1935Z Respiratory Ventilation, Less than 24 Consecutive Hours (ICD-10-PCS; 2020-06-15)
PROC: 5A1D70Z Performance of Urinary Filtration, Intermittent, Less than 6 Hours Per Day (ICD-10-PCS; 2020-06-15)
PROC: 5A09357 Assistance with Respiratory Ventilation, Less than 24 Consecutive Hours, Continuous Positive Airway Pressure (ICD-10-PCS; 2020-06-15)
PROC: 0BH17EZ Insertion of Endotracheal Airway into Trachea, Via Natural or Artificial Opening (ICD-10-PCS; 2020-06-15)
PROC: 5A12012 Performance of Cardiac Output, Single, Manual (ICD-10-PCS; 2020-06-15)
DX: A41.89 Other specified sepsis (principal); U07.1 COVID-19; J12.89 Other viral pneumonia; J96.01 Acute respiratory failure with hypoxia; N18.6 End stage renal disease; G93.41 Metabolic encephalopathy; I12.0 Hypertensive chronic kidney disease with stage 5 chronic kidney disease or end stage renal disease; Z68.42 Body mass index [BMI] 45.0-49.9, adult; E87.2 Acidosis; T82.898A Other specified complication of vascular prosthetic devices, implants and grafts, initial encounter; D64.9 Anemia, unspecified; E11.22 Type 2 diabetes mellitus with diabetic chronic kidney disease; E11.51 Type 2 diabetes mellitus with diabetic peripheral angiopathy without gangrene; Z66 Do not resuscitate; E11.65 Type 2 diabetes mellitus with hyperglycemia; E66.01 Morbid (severe) obesity due to excess calories; E87.5 Hyperkalemia; F41.9 Anxiety disorder, unspecified; I46.9 Cardiac arrest, cause unspecified; R63.3 Feeding difficulties; Y95 Nosocomial condition; Y83.8 Other surgical procedures as the cause of abnormal reaction of the patient, or of later complication, without mention of misadventure at the time of the procedure; Y92.89 Other specified places as the place of occurrence of the external cause; Z99.2 Dependence on renal dialysis; Z90.721 Acquired absence of ovaries, unilateral; Z74.01 Bed confinement status; Z79.4 Long term (current) use of insulin; Z91.19 Patient's noncompliance with other medical treatment and regimen; Z86.19 Personal history of other infectious and parasitic diseases; Z88.0 Allergy status to penicillin; Z90.710 Acquired absence of both cervix and uterus; Z82.0 Family history of epilepsy and other diseases of the nervous system; Z83.3 Family history of diabetes mellitus; Z82.49 Family history of ischemic heart disease and other diseases of the circulatory system
CPT/HCPCS: 31500; 36415; 36556; 36600; 71045; 74178; 80048; 80053; 80074; 80076; 80202; 82435; 82550; 82728; 82803; 82947; 82948; 83605; 83615; 83690; 83880; 84100; 84132; 84145; 84295; 84484; 85018; 85025; 85378; 85610; 85730; 86140; 86704; 86706; 87040; 87340; 87520; 90935; 92950; 93005; 94002; 94660; C1750; G0378; J0330; J0360; J0610; J0885; J1170; J1200; J1644; J1650; J1815; J2060; J2185; J2250; J2405; J2704; J2920; J2930; J3010; J3370; J3490; J7040; J7050; J7070; P9046; Q9967